=== PATIENT | male | born 1935 | race African-American/Black ===

== ENCOUNTER 2019-01-25 11:03 | Inpatient (IN) | payer MEDICARE, MEDICAID ==
[~2019-01-25] VITALS: Ht 167.6 cm; Wt 45.8 kg
--- NOTE | 2019-01-25 11:05 | NUR ---
ED Nurse Note: Patient brought into ED by [facility] from [facility] due to 1 episode of coffee ground emesis this morning. patient is awake alert x1 confused, unable to follow directions at this time, breathing unlabored and even.
[2019-01-25] MEDS ORDERED: NAMENDA5 MG ORAL (11:06)
[2019-01-25] MEDS ORDERED: FLOMAX0.4 MG ORAL (11:06)
[2019-01-25] MEDS ORDERED: LOSARTAN POTASS50 MG ORAL (11:06)
[2019-01-25] MEDS ORDERED: AMLODIPINE BESY10 MG ORAL (11:06)
[2019-01-25] MEDS ORDERED: METOPROLOL TART50 MG ORAL (11:06)
[2019-01-25] MEDS ORDERED: Pantoprazole Inj IV ONE (11:15)
--- NOTE | 2019-01-25 11:16 | Emergency Room Report ---
History of Present Illness General Chief Complaint: Gastrointestinal Bleed Source: EMS Present Illness HPI 83-year-old male history of dementia, BPH, hypertension, presents with coffee- ground emesis x1 day, unknown aggravating alleviating factors severity is moderate, constant, patient is currently not on any anticoagulation, patient cannot give a history secondary to dementia. Previous H/H, 11. in November 10 2018 Allergies: Coded Allergies: TETANUS TOXOID, ADSORBED (Verified Allergy, Unknown, 01/25/19) Patient History Limited by: medical condition - Dementia Past Medical History: see triage record Reviewed Nursing Documentation: PMH: Agreed; PSxH: Agreed Nursing Documentation-PMH Past Medical History: No History, Except For Hx COPD: Yes Hx Diabetes: Yes Hx Cancer: Yes - NEOPLASM OF PROSTATE Hx Dialysis: No - CKD History Of Psychiatric Problem: Yes - DEMENTIA Review of Systems All Other Systems: limited - Dementia Physical Exam Vital Signs Date Time Temp Pulse Resp B/P (MAP) Pulse Ox O2 Delivery O2 Flow Rate FiO2 01/25/19 10:59 98.4 75 16 177/76 (109) 90 Room Air Sp02 EP Interpretation: reviewed, normal General Appearance: no apparent distress, alert, cachetic Head: normocephalic, atraumatic Eyes: bilateral eye PERRL, bilateral eye EOMI ENT: uvula midline, moist mucus membranes Neck: supple, thyroid normal, supple/symm/no masses Respiratory: lungs clear, no respiratory distress, no retraction, no accessory muscle use Cardiovascular #1: normal peripheral pulses, regular rate, rhythm, no edema, no gallop, no murmur Gastrointestinal: non tender, soft, no guarding, no rebound Rectal: heme positive stool Musculoskeletal: normal inspection Neurologic: alert, responsive Psychiatric: mood/affect normal Skin: no rash, warm/dry Medical Decision Making Diagnostic Impression: Primary Impression: Gastrointestinal hemorrhage Qualified Codes: K27.4 - Chronic or unspecified peptic ulcer, site unspecified , with hemorrhage Additional Impressions: Dehydration UTI (urinary tract infection) Qualified Codes: N30.00 - Acute cystitis without hematuria ER Course 83-year-old male presents with coffee-ground emesis prior to arrival, patient was emergently evaluated by me, on the differential includes gastritis, acute GI bleed, peptic ulcer disease Lab work sent preop labs sent, Patient found to have dehydration will resuscitate patient Patient also found to have UTI will start ceftriaxone Will admit patient to [facility] Tests Test 01/25/19 11:00 01/25/19 13:17 01/25/19 13:19 White Blood Count 7.5 K/UL (4.8-10.8) Red Blood Count 3.76 M/UL (4.70-6.10) L Hemoglobin 11.7 G/DL (14.2-18.0) L Hematocrit 36.4 % (42.0-52.0) L Mean Corpuscular Volume 97 FL (80-99) Mean Corpuscular Hemoglobin 31.1 PG (27.0-31.0) H Mean Corpuscular Hemoglobin Concent 32.1 G/DL (32.0-36.0) Red Cell Distribution Width 12.7 % (11.6-14.8) Platelet Count 172 K/UL (150-450) Mean Platelet Volume 4.8 FL (6.5-10.1) L Neutrophils (%) (Auto) 75.6 % (45.0-75.0) H Lymphocytes (%) (Auto) 15.8 % (20.0-45.0) L Monocytes (%) (Auto) 7.5 % (1.0-10.0) Eosinophils (%) (Auto) 0.5 % (0.0-3.0) Basophils (%) (Auto) 0.7 % (0.0-2.0) Sodium Level 147 MMOL/L (136-145) H Potassium Level 4.7 MMOL/L (3.5-5.1) Chloride Level 110 MMOL/L (98-107) H Carbon Dioxide Level 32 MMOL/L (21-32) Anion Gap 5 mmol/L (5-15) Blood Urea Nitrogen 50 mg/dL (7-18) H Creatinine 1.3 MG/DL (0.55-1.30) Estimate Glomerular Filtration Rate mL/min (>60) Glucose Level 167 MG/DL (74-106) H Calcium Level 9.2 MG/DL (8.5-10.1) Total Bilirubin 0.3 MG/DL (0.2-1.0) Aspartate Amino Transferase (AST) 25 U/L (15-37) Alanine Aminotransferase (ALT) 18 U/L (12-78) Alkaline Phosphatase 59 U/L (46-116) Total Protein 6.8 G/DL (6.4-8.2) Albumin 2.8 G/DL (3.4-5.0) L Globulin 4.0 g/dL Albumin/Globulin Ratio 0.7 (1.0-2.7) L Lipase 143 U/L (73-393) Prothrombin Time Pending Prothrombin Time INR Pending PTT Pending Urine Color Pale yellow Urine Appearance Clear Urine pH 7 (4.5-8.0) Urine Specific [place] 1.005 (1.005-1.035) Urine Protein 1+ (NEGATIVE) H Urine Glucose (UA) Negative (NEGATIVE) Urine Ketones Negative (NEGATIVE) Urine Blood 5+ (NEGATIVE) H Urine Nitrite Negative (NEGATIVE) Urine Bilirubin Negative (NEGATIVE) Urine Urobilinogen Normal MG/DL (0.0-1.0) Urine Leukocyte Esterase 3+ (NEGATIVE) H Urine RBC 20-30 /HPF (0 - 0) H Urine WBC 10-15 /HPF (0 - 0) H Urine Squamous Epithelial Cells Occasional /LPF Urine Bacteria Occasional /HPF (NONE) EKG Diagnostic Results EKG Time: 11:18 EP Interpretation: NSR, rate 77, QTc 445, no acute ST elevations, artifact present Rhythm Strip Diag. Results Rhythm Strip Time: 11:15 EP Interpretation: yes Rate: 89 Rhythm: NSR, no PVC's, no ectopy Chest X-Ray Diagnostic Results Chest X-Ray Diagnostic Results : Chest X-Ray Ordered: Yes # of Views/Limited/Complete: 1 View Indication: Other - GI bleed EP Interpretation: Yes Interpretation: no consolidation, no effusion, no pneumothorax, no acute cardiopulmonary disease Impression: No acute disease Electronically Signed by: Moise Suarez MD CT/MRI/US Diagnostic Results CT/MRI/US Diagnostic Results : Impression Procedure: CT Abdomen Pelvis w/Contrast Clinical Indication: Pain, coffee-ground emesis x1 day Technique: No oral contrast utilized, per emergency room physician request IV administration nonionic contrast. Venous phase spiral acquisition obtained through the abdomen and pelvis. Multiplanar reconstructions were generated. Total dose length product 386.05 mGycm. CTDIvol(s) 9.27 mGy. Dose reduction achieved using automated exposure control Comparison: none Findings: The stomach is distended. The duodenum is nondistended. No definite mass at the gastric outlet demonstrated. Colonic anatomy is difficult to assess. The distal colon is filled with stool. The proximal colon is fluid-filled. There is evidence of prior ascending colectomy and ileocolic anastomosis. There is questionably an area of narrowing of the colon at the level of the hepatic flexure, although this is probably just a focally nondistended area. There is a broad-based ventral hernia which contains a knuckle of the transverse colon and loops of small bowel. No definite small bowel obstruction related to such. This probably does not obstruct the transverse colon either, as mildly prominent fluid-filled colon is seen distal to the entry point. No free or loculated intraperitoneal gas or fluid. No definite small bowel distention. There is a left inguinal hernia which contains fluid but no bowel. There is a soft tissue mass within the right inguinal canal which may reflect an incompletely descended testicle. Similar finding is seen in the left femoral canal. The liver demonstrates subcentimeter low-attenuation lesions which are too small to characterize. The gallbladder, bile ducts, pancreas, spleen, adrenals are unremarkable. The left kidney demonstrates an interpolar region cyst. Both kidneys demonstrate subcentimeter low-attenuation lesions which are too small to characterize. There is a 6 mm calcification in the left renal lower pole. No hydronephrosis or ureteral calculi demonstrated. No retroperitoneal or mesenteric mass or adenopathy. No pelvic mass or adenopathy. The prostate is enlarged, measuring 5 cm transverse dimension. The bladder is somewhat thick walled although incompletely distended. The right lung bases demonstrates a 2.8 cm masslike opacity in the posterior medial right lower lobe. There are areas of linear scarring surrounding this. In the right middle lobe, there is a spiculated 9 mm masslike opacity. No effusions. The bones demonstrate degenerative spondylosis changes. There is anterior offset of L4 on L5. There is a compression fracture deformity of the L1 vertebral body, age of which is indeterminate. Impression: Broad-based ventral hernia, containing a knuckle of transverse colon and a few loops of small bowel. No definite small bowel obstruction related to such Mildly distended fluid-filled ascending colon. Suspect functional in nature due to prior surgery. There is some narrowing of the proximal transverse colon which may be an area of peristalsis bladder and obstructing mass is not completely excludable. Doubt significant narrowing of the colon by the hernia, although this is not completely excludable. Stool-filled distal colon Left inguinal hernia contains fluid but no bowel. Bilateral soft tissue masses within the inguinal canals may reflect incompletely descended testicles 2.8 cm right lower lobe masslike opacity. Possibly an area of scarring or focal consolidation, but the possibility of a mass lesion should also be considered. Similar 0.9 cm area within the right middle lobe. There is also basilar parenchymal scarring L1 compression fracture, age-indeterminate Other findings as noted, including subcentimeter low-attenuation liver lesions, left renal cysts, subcentimeter low-attenuation left renal lesions, 6 mm lower pole left renal calcification, prostatomegaly The CT scanner at [facility] is accredited by the [employer] and the scans are performed using protocols designed to limit radiation exposure to as low as reasonably achievable to attain images of sufficient resolution adequate for diagnostic evaluation. Dictated By: Gilberto Willett MD Electronically Signed By: Gilberto Willett MD Signed Date/Time 01/25/19 0729 CC: Moise Suarez MD Last Vital Signs Date Time Temp Pulse Resp B/P (MAP) Pulse Ox O2 Delivery O2 Flow Rate FiO2 01/25/19 10:59 98.4 75 16 177/76 (109) 90 Room Air Disposition: ADMITTED INPATIENT Condition: Stable Moise Suarez MD Jan 25, 2019 11:16
[2019-01-25 11:33] LABS: BASOPHILS % (AUTO) 0.7 % (0.0-2.0); EOSINOPHILS % (AUTO) 0.5 % (0.0-3.0); HEMATOCRIT 36.4 % (42.0-52.0); HEMOGLOBIN 11.7 G/DL (14.2-18.0); LYMPHOCYTES % (AUTO) 15.8 % (20.0-45.0); MEAN CORPUSCULAR VOLUME 97 FL (80-99); MONOCYTES % (AUTO) 7.5 % (1.0-10.0); NEUTROPHILS % (AUTO) 75.6 % (45.0-75.0); PLATELET COUNT 172 K/UL (150-450); RED BLOOD COUNT 3.76 M/UL (4.70-6.10); RED CELL DISTRIBUTION WIDTH 12.7 % (11.6-14.8); WHITE BLOOD COUNT 7.5 K/UL (4.8-10.8)
[2019-01-25 11:40] VITALS: BP 188/65
--- NOTE | 2019-01-25 11:49 | NUR ---
ED Nurse Note: condom cath applied per Dr. Suarez's order
--- NOTE | 2019-01-25 11:49 | NUR ---
ED Nurse Note: condom cath applied.
[2019-01-25 11:51] LABS: ANION GAP 5 mmol/L (5-15); BLOOD UREA NITROGEN 50 mg/dL (7-18); CALCIUM 9.2 MG/DL (8.5-10.1); CARBON DIOXIDE 32 MMOL/L (21-32); CHLORIDE 110 MMOL/L (98-107); CREATININE 1.3 MG/DL (0.55-1.30); POTASSIUM 4.7 MMOL/L (3.5-5.1); SODIUM 147 MMOL/L (136-145)
[2019-01-25 11:52] LABS: ALANINE AMINOTRANSFERASE 18 U/L (12-78); ALBUMIN 2.8 G/DL (3.4-5.0); ALBUMIN/GLOBULIN RATIO 0.7 (1.0-2.7); ALKALINE PHOSPHATASE 59 U/L (46-116); ASPARTATE AMINO TRANSFERASE 25 U/L (15-37); BILIRUBIN,TOTAL 0.3 MG/DL (0.2-1.0)
[2019-01-25] MEDS ORDERED: Isovue-300 100ml vial INJ PRN (12:00)
--- NOTE | 2019-01-25 13:20 | Diagnostic Imaging Report ---
Clinical Indication: Pain, coffee-ground emesis x1 day Technique: No oral contrast utilized, per emergency room physician request IV administration nonionic contrast. Venous phase spiral acquisition obtained through the abdomen and pelvis. Multiplanar reconstructions were generated. Total dose length product 386.05 mGycm. CTDIvol(s) 9.27 mGy. Dose reduction achieved using automated exposure control Comparison: none Findings: The stomach is distended. The duodenum is nondistended. No definite mass at the gastric outlet demonstrated. Colonic anatomy is difficult to assess. The distal colon is filled with stool. The proximal colon is fluid-filled. There is evidence of prior ascending colectomy and ileocolic anastomosis. There is questionably an area of narrowing of the colon at the level of the hepatic flexure, although this is probably just a focally nondistended area. There is a broad-based ventral hernia which contains a knuckle of the transverse colon and loops of small bowel. No definite small bowel obstruction related to such. This probably does not obstruct the transverse colon either, as mildly prominent fluid-filled colon is seen distal to the entry point. No free or loculated intraperitoneal gas or fluid. No definite small bowel distention. There is a left inguinal hernia which contains fluid but no bowel. There is a soft tissue mass within the right inguinal canal which may reflect an incompletely descended testicle. Similar finding is seen in the left femoral canal. The liver demonstrates subcentimeter low-attenuation lesions which are too small to characterize. The gallbladder, bile ducts, pancreas, spleen, adrenals are unremarkable. The left kidney demonstrates an interpolar region cyst. Both kidneys demonstrate subcentimeter low-attenuation lesions which are too small to characterize. There is a 6 mm calcification in the left renal lower pole. No hydronephrosis or ureteral calculi demonstrated. No retroperitoneal or mesenteric mass or adenopathy. No pelvic mass or adenopathy. The prostate is enlarged, measuring 5 cm transverse dimension. The bladder is somewhat thick walled although incompletely distended. The right lung bases demonstrates a 2.8 cm masslike opacity in the posterior medial right lower lobe. There are areas of linear scarring surrounding this. In the right middle lobe, there is a spiculated 9 mm masslike opacity. No effusions. The bones demonstrate degenerative spondylosis changes. There is anterior offset of L4 on L5. There is a compression fracture deformity of the L1 vertebral body, age of which is indeterminate. Impression: Broad-based ventral hernia, containing a knuckle of transverse colon and a few loops of small bowel. No definite small bowel obstruction related to such Mildly distended fluid-filled ascending colon. Suspect functional in nature due to prior surgery. There is some narrowing of the proximal transverse colon which may be an area of peristalsis bladder and obstructing mass is not completely excludable. Doubt significant narrowing of the colon by the hernia, although this is not completely excludable. Stool-filled distal colon Left inguinal hernia contains fluid but no bowel. Bilateral soft tissue masses within the inguinal canals may reflect incompletely descended testicles 2.8 cm right lower lobe masslike opacity. Possibly an area of scarring or focal consolidation, but the possibility of a mass lesion should also be considered. Similar 0.9 cm area within the right middle lobe. There is also basilar parenchymal scarring L1 compression fracture, age-indeterminate Other findings as noted, including subcentimeter low-attenuation liver lesions, left renal cysts, subcentimeter low-attenuation left renal lesions, 6 mm lower pole left renal calcification, prostatomegaly The CT scanner at [facility] is accredited by the [employer] and the scans are performed using protocols designed to limit radiation exposure to as low as reasonably achievable to attain images of sufficient resolution adequate for diagnostic evaluation.
[2019-01-25 13:28] LABS: APPEARANCE,URINE CLEAR; BILIRUBIN, URINE NEGATIVE (NEGATIVE); COLOR,URINE PALE YELLOW; GLUCOSE, URINE (UA) NEGATIVE (NEGATIVE); KETONES,URINE NEGATIVE (NEGATIVE); LEUKOCYTE ESTERASE ,URINE 3+ (NEGATIVE); NITRITE,URINE NEGATIVE (NEGATIVE); PH,URINE 7 (4.5-8.0); PROTEIN,URINE 1+ (NEGATIVE); UROBILINOGEN,URINE NORMAL MG/DL (0.0-1.0)
[2019-01-25] MEDS ORDERED: cefTRIAXone 1 GM in NS 55 ML IVPB ONE (13:45)
--- NOTE | 2019-01-25 14:20 | NUR ---
ED Nurse Note: report given to Min RN. endorsed all plan of care to Min RN.
--- NOTE | 2019-01-25 14:25 | NUR ---
ED Nurse Note: patient transferred to 2E with SUPERVIS[employer] POST WAVE on ACLS protocol. patient has no belongings. endorsed to RN Min.
--- NOTE | 2019-01-25 14:30 | NUR ---
NURSE NOTES: Report received from Rosalia JOHNSON from ED. Pt's transferred from ED vis [facility] with RN and imaging technician. No c/o pain. Awake and disoriented but able to follow the simple comment. IV site in right forearm 20G SL intact and asymptomatic. Bed in lowest position and locked. Call light within easy reach. monitor car operator applied. Sinus rhythm noted on monitor. Pt came with no belonging. Dr. Salinas called for admission orders. Will continue to plan of care.
[2019-01-25 14:40] VITALS: BP 155/83
--- NOTE | 2019-01-25 15:29 | Diagnostic Imaging Report ---
Indication: Shortness of breath Technique: One view of the chest Comparison: none Findings: The lungs and pleural spaces are clear. The heart size is normal. The aorta is tortuous and calcified. Gastric distention, also described on subsequent CT scan, is noted. Impression: No acute cardiopulmonary process
--- NOTE | 2019-01-25 17:45 | Consultation ---
DATE OF CONSULTATION: 01/25/2019 INFECTIOUS DISEASE CONSULTATION CONSULTING PHYSICIAN: Tremayne Bhatti M.D. PRIMARY ATTENDING PHYSICIAN: Rajesh Salinas M.D. REASON FOR CONSULT: UTI. HISTORY OF PRESENT ILLNESS: This is an 83-year-old male admitted from a nursing facility for vomiting brownish material with impression of GI bleeding. He has also abnormal urine including hematuria and pyuria. He is not a source of history. PAST MEDICAL HISTORY: Significant for COPD, diabetes mellitus, prostatic cancer, dementia, and chronic kidney disease stage 3. MEDICATION: Got the dose of ceftriaxone in the ER, sodium chloride, Protonix, and Zofran. ALLERGY: Allergic to tetanus toxoid. SOCIAL HISTORY: Single. halfway resident. No other history obtainable. REVIEW OF SYSTEMS: Unobtainable. PHYSICAL EXAMINATION: VITAL SIGNS: Temperature 97.7, pulse 68, and blood pressure 155/83. GENERAL APPEARANCE: No acute distress. Seems to be awake and alert. Not communicative. HEAD AND NECK: [place] conjunctiva. HEART: Normal rate. LUNGS: Clear. ABDOMEN: Soft. Has ventral hernia. EXTREMITIES: Has no edema. LABORATORY AND DIAGNOSTIC DATA: WBC 7.5, hemoglobin 11.7, hematocrit 36.4, and platelets is 172,000. Sodium 147, potassium 4.7, chloride 110, BUN 15, creatinine 1.3, and glucose is 167. UA showed rbc of 20 to 30 and wbc of 10 to 15. The patient had a CT scan of the abdomen and pelvis. It showed lung bases had a 2.8 cm masslike opacity, has compression fracture of L1, and stool free distal colon with inguinal hernia and ventral hernia. Chest x-ray showed no acute cardiopulmonary disease. IMPRESSION: Pyuria and hematuria. likely UTI. The patient cannot provide any history of coffee-ground vomiting. Has diabetes mellitus, chronic kidney disease, dementia, prostatic cancer, ventral hernia, and L1 compression fracture. RECOMMENDATIONS: We will continue with ceftriaxone. We will follow up the cultures. At the end of my exam, I thank Dr. Salinas for involving me in the care of this patient. Tremayne Bhatti M.D. DR: RONY Baron: 01/25/2019 15:44 JOB#: [id number] CC: SUZE
--- NOTE | 2019-01-25 18:00 | NUR ---
NURSE NOTES: A tech from came for venous duplex on BLE. Unable to perform the Venous duplex due to contractures on BLE. Dr. Salinas notified and awaiting for reply.
--- NOTE | 2019-01-25 18:43 | NUR ---
NURSE NOTES: Stool Guaiac test was positive at ED
--- NOTE | 2019-01-25 18:55 | NUR ---
NURSE NOTES: Sang Benz paged for iv antibiotics for UTI. Awaiting for reply
--- NOTE | 2019-01-25 19:25 | NUR ---
HAND-OFF: Report given to Michele JOHNSON. Pt remains stable.
--- NOTE | 2019-01-25 19:30 | NUR ---
NURSE NOTES: Received report from ELIZABETH Leung. Pt is awake and resting in bed. In no acute distress. IV line intact and patent. Pt on hospital monitor. Bed in lowest position, call light within reach. Will continue plan of care.
[2019-01-25 20:00] VITALS: BP 111/58
--- NOTE | 2019-01-25 22:06 | General Progress Note ---
Assessment/Plan Assessment/Plan: Dictated. Thank you Hemant Puentes MD Subjective Allergies: Coded Allergies: TETANUS TOXOID, ADSORBED (Verified Allergy, Unknown, 01/25/19) Objective Last 24 Hour Vital Signs Date Time Temp Pulse Resp B/P (MAP) Pulse Ox O2 Delivery O2 Flow Rate FiO2 01/25/19 15:36 73 01/25/19 15:07 Room Air 01/25/19 15:00 76 01/25/19 14:40 97.7 68 18 155/83 (107) 93 01/25/19 14:25 98.4 76 19 188/65 96 Room Air 01/25/19 11:43 76 19 Room Air 01/25/19 11:40 98.4 76 19 188/65 96 Room Air 01/25/19 10:59 98.4 75 16 177/76 (109) 90 Room Air Laboratory Tests 01/25/19 11:00: White Blood Count 7.5, Red Blood Count 3.76L, Hemoglobin 11.7L, Hematocrit 36.4L , Mean Corpuscular Volume 97, Mean Corpuscular Hemoglobin 31.1H, Mean Corpuscular Hemoglobin Concent 32.1, Red Cell Distribution Width 12.7, Platelet Count 172, Mean Platelet Volume 4.8L, Neutrophils (%) (Auto) 75.6H, Lymphocytes (%) (Auto) 15.8L, Monocytes (%) (Auto) 7.5, Eosinophils (%) (Auto) 0.5, Basophils (%) (Auto) 0.7, Sodium Level 147H, Potassium Level 4.7, Chloride Level 110H, Carbon Dioxide Level 32, Anion Gap 5, Blood Urea Nitrogen 50H, Creatinine 1.3, Estimat Glomerular Filtration Rate , Glucose Level 167H, Calcium Level 9.2, Total Bilirubin 0.3, Aspartate Amino Transf (AST/SGOT) 25, Alanine Aminotransferase (ALT/SGPT) 18, Alkaline Phosphatase 59, Total Protein 6.8, Albumin 2.8L, Globulin 4.0, Albumin/Globulin Ratio 0.7L, Lipase 143 01/25/19 13:17: Prothrombin Time 11.0, Prothromb Time International Ratio 1.0, Activated Partial Thromboplast Time 26 01/25/19 13:19: Urine Color Pale yellow, Urine Appearance Clear, Urine pH 7, Urine Specific [place] 1.005, Urine Protein 1+H, Urine Glucose (UA) Negative, Urine Ketones Negative, Urine Blood 5+H, Urine Nitrite Negative, Urine Bilirubin Negative, Urine Urobilinogen Normal, Urine Leukocyte Esterase 3+H, Urine RBC 20-30H, Urine WBC 10-15H, Urine Squamous Epithelial Cells Occasional, Urine Bacteria Occasional Height (Feet): 5 Height (Inches): 7.00 Weight (Pounds): 100 Hemant Puentes MD Jan 25, 2019 22:06
[2019-01-25] MEDS ORDERED: Pantoprazole Inj IVP SCH (23:45)
[2019-01-26] VITALS (15 sets, daily range): BP systolic 121–195; BP diastolic 61–90
--- NOTE | 2019-01-26 00:45 | Consultation ---
DATE OF CONSULTATION: 01/25/2019 GASTROENTEROLOGY CONSULTATION CONSULTING PHYSICIAN: Hemant Puentes M.D. CHIEF COMPLAINT: I was asked to see this patient by Dr. Rajesh Salinas for evaluation of gastrointestinal bleeding. HISTORY OF PRESENT ILLNESS: The patient is a debilitated 83-year-old man with a history of dementia from a detention who was brought in for dark emesis. The patient himself was unable to provide any history and most of the information is only available from the chart. The patient did have heme-positive stools in the emergency room, which verified the bleeding, and has been admitted. He has also been treated for urinary tract infection. I have had an opportunity to discuss the case with the patient's grandson who stated that the patient has had a history of peptic ulcer disease in the past, but he is unaware of the details. The patient is a unable to give much history including any pain or burning symptoms. PAST MEDICAL HISTORY: History of COPD, diabetes, prostate cancer, dementia, chronic kidney disease. MEDICATIONS: See the chart list for details. ALLERGIES: Tetanus toxoid. FAMILY HISTORY: Noncontributory. SOCIAL HISTORY: The patient is single. He is a detention resident. His grandson looks after his affairs. REVIEW OF SYSTEMS: Otherwise unobtainable. PHYSICAL EXAMINATION: GENERAL: Debilitated, man, seen in his room. HEENT: Normocephalic, atraumatic. Dentition is poor. NECK: Supple. CHEST: Clear to auscultation. CARDIOVASCULAR: Revealed a regular rate. ABDOMEN: Soft with some old surgical scars of unclear nature. EXTREMITIES: Revealed some contractures. LABORATORY DATA: Noted. ASSESSMENT: This patient presents with dark emesis, which is likely gastrointestinal bleeding since the patient also has heme-positive stools. The patient has had a history of peptic ulcer disease and therefore he should undergo another endoscopy to evaluate the upper GI tract. This can be done in the morning. In the meantime, the patient is kept NPO and be given a proton pump inhibitor and IV fluids. CBC should be checked in the morning. The indications, risks, alternatives, and possible complications of the endoscopy were explained to the patient's grandson who agreed to proceed. The grandson was advised that either I will be doing the endoscopy or I will ask my colleague, Dr. Ernst to perform it. RECOMMENDATIONS: 1. Keep the patient NPO. 2. IV fluids. 3. Proton pump inhibitor. 4. Serial CBC. 5. Endoscopy tomorrow. Thank you for asking me to participate in the care of this patient. Hemant Puentes M.D. DR: YOANNA JOB#: [id number] CC:
--- NOTE | 2019-01-26 06:35 | NUR ---
NURSE NOTES: Pt's blood glucose was at 65 mg/dl, rechecked with same glucometer and result was 61 mg/dl. Administered D50% per protocol. Rechecked glucose after 15 mins, result was 124 mg/dl. Notified Dr. Salinas, was ordered to notify Dr. Vazquez.
--- NOTE | 2019-01-26 06:53 | Anethesia Preoperative Eval ---
Anesthesia Pre-op PMH/ROS General Date of Evaluation: Jan 26, 2019 Anesthesiologist: Luis ASA Score: ASA 3 Mallampati Score Class I : Soft palate, uvula, fauces, pillars visible Class II: Soft palate, uvula, fauces visible Class III: Soft palate, base of uvula visible Class IV: Only hard plate visible Mallampati Classification: Class III Surgeon: charli Diagnosis: ?GI bleed Surgical Procedure: EGD Anesthesia History: none Family History: no anesthesia problems Allergies: Coded Allergies: TETANUS TOXOID, ADSORBED (Verified Allergy, Unknown, 01/25/19) Medications: see eMAR Patient NPO?: Yes NPO Date: Jan 25, 2019 NPO Time: 22:00 Past Medical History Cardiovascular: Reports: HTN, CAD; Denies: NM, valve dz, arrhythmia, other Pulmonary: Denies: asthma, COPD, [place], other Gastrointestinal/Genitourinary: Reports: other - uc, h/o Gi bleed, dysphagia; Denies: GERD, CRI, ESRD Neurologic/Psychiatric: Reports: dementia; Denies: CVA, depression/anxiety, TIA, other Endocrine: Reports: DM; Denies: hypothyroidism, steroids, other HEENT: Denies: cataract (L), cataract (R), glaucoma, [place] (L), [place] (R), other Hematology/Immune: Denies: anemia, DVT, bleeding disorder, other Musculoskeletal/Integumentary: Reports: other - contractures; Denies: OA, RA, DJD, DDD, edema PSxH Narrative: unable to assess Anesthesia Pre-op Phys. Exam Physician Exam Last Vital Signs Date Time Temp Pulse Resp B/P (MAP) Pulse Ox O2 Delivery O2 Flow Rate FiO2 01/26/19 04:00 97.9 86 18 131/70 (90) 96 01/25/19 21:00 Room Air Constitutional: NAD Cardiovascular: RRR Respiratory: CTA Airway Exam Mallampati Score: Class III MO: limited ROM: limited Teeth: missing Anesthesia Pre-op A/P Labs Hematology Test 01/25/19 11:00 01/26/19 06:26 White Blood Count 7.5 K/UL (4.8-10.8) Pending Red Blood Count 3.76 M/UL (4.70-6.10) L Pending Hemoglobin 11.7 G/DL (14.2-18.0) L Pending Hematocrit 36.4 % (42.0-52.0) L Pending Mean Corpuscular Volume 97 FL (80-99) Pending Mean Corpuscular Hemoglobin 31.1 PG (27.0-31.0) H Pending Mean Corpuscular Hemoglobin Concent 32.1 G/DL (32.0-36.0) Pending Red Cell Distribution Width 12.7 % (11.6-14.8) Pending Platelet Count 172 K/UL (150-450) Pending Mean Platelet Volume 4.8 FL (6.5-10.1) L Pending Neutrophils (%) (Auto) 75.6 % (45.0-75.0) H Pending Lymphocytes (%) (Auto) 15.8 % (20.0-45.0) L Pending Monocytes (%) (Auto) 7.5 % (1.0-10.0) Pending Eosinophils (%) (Auto) 0.5 % (0.0-3.0) Pending Basophils (%) (Auto) 0.7 % (0.0-2.0) Pending Coagulation Test 01/25/19 13:17 Prothrombin Time 11.0 SEC (9.30-11.50) Prothromb Time International Ratio 1.0 (0.9-1.1) Activated Partial Thromboplast Time 26 SEC (23-33) Chemistry Test 01/25/19 11:00 01/26/19 06:26 Sodium Level 147 MMOL/L (136-145) H Pending Potassium Level 4.7 MMOL/L (3.5-5.1) Pending Chloride Level 110 MMOL/L (98-107) H Pending Carbon Dioxide Level 32 MMOL/L (21-32) Pending Anion Gap 5 mmol/L (5-15) Blood Urea Nitrogen 50 mg/dL (7-18) H Pending Creatinine 1.3 MG/DL (0.55-1.30) Pending Estimat Glomerular Filtration Rate mL/min (>60) Pending Glucose Level 167 MG/DL (74-106) H Pending Calcium Level 9.2 MG/DL (8.5-10.1) Pending Total Bilirubin 0.3 MG/DL (0.2-1.0) Pending Aspartate Amino Transf (AST/SGOT) 25 U/L (15-37) Pending Alanine Aminotransferase (ALT/SGPT) 18 U/L (12-78) Pending Alkaline Phosphatase 59 U/L (46-116) Pending Total Protein 6.8 G/DL (6.4-8.2) Pending Albumin 2.8 G/DL (3.4-5.0) L Pending Globulin 4.0 g/dL Pending Albumin/Globulin Ratio 0.7 (1.0-2.7) L Lipase 143 U/L (73-393) Studies Pre-op Studies: EKG - sr Risk Assessment & Plan Assessment: ASA III Plan: MAC Status Change Before Surgery: No Pre-Antibiotics Drug: N/A Alexandra Rincon MD Jan 26, 2019 06:52
--- NOTE | 2019-01-26 06:56 | NUR ---
NURSE NOTES: Notified Dr. Vazquez regarding pt episode of hypoglycemia. NNO orders at this time.
[2019-01-26 07:05] LABS: BASOPHILS % (AUTO) 0.4 % (0.0-2.0); EOSINOPHILS % (AUTO) 0.9 % (0.0-3.0); HEMATOCRIT 32.3 % (42.0-52.0); HEMOGLOBIN 10.1 G/DL (14.2-18.0); LYMPHOCYTES % (AUTO) 14.9 % (20.0-45.0); MEAN CORPUSCULAR VOLUME 98 FL (80-99); MONOCYTES % (AUTO) 7.8 % (1.0-10.0); PLATELET COUNT 135 K/UL (150-450); RED BLOOD COUNT 3.29 M/UL (4.70-6.10); RED CELL DISTRIBUTION WIDTH 12.8 % (11.6-14.8); WHITE BLOOD COUNT 4.7 K/UL (4.8-10.8)
--- NOTE | 2019-01-26 07:05 | NUR ---
NURSE NOTES: Pt left unit accompanied by transporter via gurney for GI procedure. Pt was in stable condition at the time of transfer.
[2019-01-26] MEDS ORDERED: Propofol 200mg/20ml IV ONE (07:08)
[2019-01-26] MEDS ORDERED: Lidocaine 1% MPF 10mg/ml 5ml ONE (07:08)
--- NOTE | 2019-01-26 07:09 | General Progress Note ---
Assessment/Plan Assessment/Plan: Assessment - UGIB - OB (+) - Mild anemia - mild thrombocytopenia, ? etiol - OBS Recommendations - follow labs - NPO - IVF - PPI - EGD today Subjective Allergies: Coded Allergies: TETANUS TOXOID, ADSORBED (Verified Allergy, Unknown, 01/25/19) Subjective Above noted confused no events overnight Objective Last 24 Hour Vital Signs Date Time Temp Pulse Resp B/P (MAP) Pulse Ox O2 Delivery O2 Flow Rate FiO2 01/26/19 04:00 97.9 86 18 131/70 (90) 96 01/26/19 04:00 86 01/26/19 00:00 63 01/26/19 00:00 98.1 63 18 156/63 (94) 95 01/25/19 23:05 65 01/25/19 21:00 Room Air 01/25/19 20:00 97.9 65 18 111/58 (75) 98 01/25/19 15:36 73 01/25/19 15:07 Room Air 01/25/19 15:00 76 01/25/19 14:40 97.7 68 18 155/83 (107) 93 01/25/19 14:25 98.4 76 19 188/65 96 Room Air 01/25/19 11:43 76 19 Room Air 01/25/19 11:40 98.4 76 19 188/65 96 Room Air 01/25/19 10:59 98.4 75 16 177/76 (109) 90 Room Air Intake and Output 01/25/19 01/26/19 19:00 07:00 Intake Total 175 ml 600 ml Output Total 200 ml Balance 175 ml 400 ml Intake IV Total 175 ml 600 ml Output Urine Total 200 ml # Voids 2 # Bowel Movements 2 Laboratory Tests 01/25/19 11:00: White Blood Count 7.5, Red Blood Count 3.76L, Hemoglobin 11.7L, Hematocrit 36.4L , Mean Corpuscular Volume 97, Mean Corpuscular Hemoglobin 31.1H, Mean Corpuscular Hemoglobin Concent 32.1, Red Cell Distribution Width 12.7, Platelet Count 172, Mean Platelet Volume 4.8L, Neutrophils (%) (Auto) 75.6H, Lymphocytes (%) (Auto) 15.8L, Monocytes (%) (Auto) 7.5, Eosinophils (%) (Auto) 0.5, Basophils (%) (Auto) 0.7, Sodium Level 147H, Potassium Level 4.7, Chloride Level 110H, Carbon Dioxide Level 32, Anion Gap 5, Blood Urea Nitrogen 50H, Creatinine 1.3, Estimat Glomerular Filtration Rate , Glucose Level 167H, Calcium Level 9.2, Total Bilirubin 0.3, Aspartate Amino Transf (AST/SGOT) 25, Alanine Aminotransferase (ALT/SGPT) 18, Alkaline Phosphatase 59, Total Protein 6.8, Albumin 2.8L, Globulin 4.0, Albumin/Globulin Ratio 0.7L, Lipase 143 01/25/19 13:17: Prothrombin Time 11.0, Prothromb Time International Ratio 1.0, Activated Partial Thromboplast Time 26 01/25/19 13:19: Urine Color Pale yellow, Urine Appearance Clear, Urine pH 7, Urine Specific [place] 1.005, Urine Protein 1+H, Urine Glucose (UA) Negative, Urine Ketones Negative, Urine Blood 5+H, Urine Nitrite Negative, Urine Bilirubin Negative, Urine Urobilinogen Normal, Urine Leukocyte Esterase 3+H, Urine RBC 20-30H, Urine WBC 10-15H, Urine Squamous Epithelial Cells Occasional, Urine Bacteria Occasional 01/26/19 06:26: White Blood Count [Pending], Red Blood Count [Pending], Hemoglobin [Pending], Hematocrit [Pending], Mean Corpuscular Volume [Pending], Mean Corpuscular Hemoglobin [Pending], Mean Corpuscular Hemoglobin Concent [Pending], Red Cell Distribution Width [Pending], Platelet Count [Pending], Mean Platelet Volume [ Pending], Neutrophils (%) (Auto) [Pending], Lymphocytes (%) (Auto) [Pending], Monocytes (%) (Auto) [Pending], Eosinophils (%) (Auto) [Pending], Basophils (%) (Auto) [Pending], Sodium Level [Pending], Potassium Level [Pending], Chloride Level [Pending], Carbon Dioxide Level [Pending], Blood Urea Nitrogen [Pending], Creatinine [Pending], Estimat Glomerular Filtration Rate [Pending], Glucose Level [Pending], Calcium Level [Pending], Total Bilirubin [Pending], Aspartate Amino Transf (AST/SGOT) [Pending], Alanine Aminotransferase (ALT/SGPT) [Pending] , Alkaline Phosphatase [Pending], Total Protein [Pending], Albumin [Pending], Globulin [Pending] Height (Feet): 5 Height (Inches): 6.00 Weight (Pounds): 101 Objective Thin AA man NCAT supple CTA RR abd soft no edema neuro OBS, confused Hemant Puentes MD Jan 26, 2019 07:09
--- NOTE | 2019-01-26 07:10 | Pre-Procedure Note/Attestation ---
Pre-Procedure Note/Attestation Complete Prior to Procedure Planned Procedure: not applicable Procedure Narrative: EGD Indications for Procedure Pre-Operative Diagnosis: GIB Attestation I attest that I discussed the nature of the procedure; its benefits; risks and complications; and alternatives (and the risks and benefits of such alternatives ), prior to the procedure, with the patient (or the patient's legal players club representative). I attest that, if there was a reasonable possibility of needing a blood transfusion, the patient (or the patient's legal players club representative) was given the [facility] standardized written summary, pursuant to the Emiliano Carl Blood Safety Act ([place] Health and Safety Code # 1645, as amended). I attest that I re-evaluated the patient just prior to the surgery and that there has been no change in the patient's H&P, except as documented below: Hemant Peuntes MD Jan 26, 2019 07:10
[2019-01-26] MEDS ORDERED: NS 500ML IVPB ONE (07:15)
--- NOTE | 2019-01-26 07:15 | NUR ---
NURSE NOTES: Dr. Vazquez called again and gave new orders to change IV fluids to D51/2NS at 75 cc/hr and to check blood glucose Q4HR with no coverage. Orders read back and carried out.
[2019-01-26 07:17] LABS: ALANINE AMINOTRANSFERASE 16 U/L (12-78); ALBUMIN 2.7 G/DL (3.4-5.0); ALBUMIN/GLOBULIN RATIO 0.7 (1.0-2.7); ALKALINE PHOSPHATASE 56 U/L (46-116); ANION GAP 9 mmol/L (5-15); ASPARTATE AMINO TRANSFERASE 19 U/L (15-37); BILIRUBIN,TOTAL 0.3 MG/DL (0.2-1.0); BLOOD UREA NITROGEN 33 mg/dL (7-18); CALCIUM 8.8 MG/DL (8.5-10.1); CARBON DIOXIDE 26 MMOL/L (21-32); CHLORIDE 111 MMOL/L (98-107); CREATININE 1.1 MG/DL (0.55-1.30); POTASSIUM 4.1 MMOL/L (3.5-5.1); SODIUM 146 MMOL/L (136-145)
--- NOTE | 2019-01-26 07:25 | NUR ---
NURSE NOTES: Rceived report from ELIZAEBTH Leung. Pt is awake and resting in bed. In no acute distress. IV line intact and patent. Pt on leguillon debeader. Bed in lowest position, call light within reach. Will continue plan of care.
--- NOTE | 2019-01-26 07:25 | NUR ---
HAND-OFF: Report given to ELIZABETH Leung.
--- NOTE | 2019-01-26 07:34 | Endoscopy Procedure Note ---
Endoscopy Procedure Note General Indication for Procedure: GIB Procedures Performed: EGD Operative Findings/Diagnosis: 2 cm HH, GERD, r/o barretts Specimen: yes Pt Tolerated Procedure Well: Yes Estimated Blood Loss: none Anesthesia Anesthesiologist: Dr Smith Anesthesia: MAC, moderate sedation Medications Medication Given: see anesthesia record Inserted Devices Implant(s) used?: No GI Core Measures 50 yrs or older w/o bx or poly: Not Applicable 10yrs. F/U recommended: Not Applicable Hemant Puentes MD Jan 26, 2019 07:34
--- NOTE | 2019-01-26 07:36 | Brief Operative Note ---
Immediate Post Operative Note Operative Note Chief Complaint: UGIB Pre-op Diagnosis: GIB Procedure: esophagogastroduodenoscopy bx Post-op Diagnosis: 2 cm HH, GERD, r/o barretts Surgeon: charli Anesthesiologist: Luis Anesthesia: MAC Specimen: yes Complications: none Condition: stable Fluids: recorded Estimated Blood Loss: none Drains: none Implant(s) used?: No Hemant Puentes MD Jan 26, 2019 07:36
--- NOTE | 2019-01-26 07:37 | Immediate Post-Op Evaluation ---
Immediate Post-Op Evalulation Immediate Post-Op Evalulation Procedure: EGD Date of Evaluation: Jan 26, 2019 Time of Evaluation: 07:39 IV Fluids: 150 Blood Products: 0 Estimated Blood Loss: 0 Urinary Output: 0 Blood Pressure Systolic: 133 Blood Pressure Diastolic: 72 Pulse Rate: 94 Respiratory Rate: 17 O2 Sat by Pulse Oximetry: 96 Temperature (Fahrenheit): 99.4 Pain Score (1-10): 0 Nausea: No Vomiting: No Complications 0 Patient Status: awake, reacts, patent, none Hydration Status: adequate Drug: N/a Alexandra Rincon MD Jan 26, 2019 07:37
--- NOTE | 2019-01-26 07:39 | 48 Hour Post Anesthesia Eval ---
Post Anesthesia Evaluation Procedure: EGD Date of Evaluation: Jan 26, 2019 Airway: patent Nausea: No Vomiting: No Hydration Status: adequate Cardiopulmonary Status: at baseline Mental Status/LOC: patient returned to baseline Post-Anesthesia Complications: 0 Follow-up care needed: ready to discharge Alexandra Rincon MD Jan 26, 2019 07:39
[2019-01-26] MEDS ORDERED: D5 1/2NS 1,000 ML IV SCH (08:00)
--- NOTE | 2019-01-26 08:07 | CDS Physician Query ---
Clarification is required for compliance, coding accuracy, and to reflect severity of illness for this patient Dear Dr. Hemant Puentes M.D. 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 BRUNAD
--- NOTE | 2019-01-26 11:26 | NUR ---
NURSE NOTES: Dr. Jeter paged for hypertention, there is no blood meds ordered. 195/ , P100 and Awaiting for reply
[2019-01-26] MEDS ORDERED: Metoprolol Tartrate 50mg tab ORAL SCH (11:45)
[2019-01-26] MEDS ORDERED: cefTRIAXone 1 GM in D5W 55 ML IVPB SCH (13:00)
--- NOTE | 2019-01-26 13:01 | Consultation ---
History of Present Illness General Chief Complaint: Gastrointestinal Bleed Present Illness Allergies: Coded Allergies: TETANUS TOXOID, ADSORBED (Verified Allergy, Unknown, 01/25/19) Medication History Scheduled Amlodipine Besylate* (Amlodipine Besylate*), 10 MG ORAL DAILY, (Reported) Losartan Potassium* (Losartan Potassium*), 100 MG ORAL DAILY, (Reported) Memantine Hcl* (Namenda*), 5 MG ORAL DAILY, (Reported) Metoprolol Tartrate* (Metoprolol Tartrate*), 50 MG ORAL EVERY 12 HOURS, ( Reported) Tamsulosin HCl (Flomax), 0.4 MG ORAL DAILY, (Reported) Patient History Healthcare decision maker N Resuscitation status Full Code Advanced Directive on File Physical Exam Last 24 Hour Vital Signs Date Time Temp Pulse Resp B/P (MAP) Pulse Ox O2 Delivery O2 Flow Rate FiO2 01/26/19 11:52 92 195/90 01/26/19 11:52 92 195/90 01/26/19 11:25 99.1 92 20 195/90 (125) 99 01/26/19 09:00 Room Air 01/26/19 08:00 99.4 92 20 129/90 (103) 94 01/26/19 08:00 100 01/26/19 07:55 99.1 87 15 158/88 99 Nasal Cannula 3 01/26/19 07:44 90 15 159/73 99 Nasal Cannula 3 01/26/19 07:39 94 18 121/85 99 Nasal Cannula 3 01/26/19 07:37 94 17 96 01/26/19 07:34 99.4 94 17 133/72 96 Nasal Cannula 3 01/26/19 04:00 97.9 86 18 131/70 (90) 96 01/26/19 04:00 86 01/26/19 00:00 63 01/26/19 00:00 98.1 63 18 156/63 (94) 95 01/25/19 23:05 65 01/25/19 21:00 Room Air 01/25/19 20:00 97.9 65 18 111/58 (75) 98 01/25/19 15:36 73 01/25/19 15:07 Room Air 01/25/19 15:00 76 01/25/19 14:40 97.7 68 18 155/83 (107) 93 01/25/19 14:25 98.4 76 19 188/65 96 Room Air Intake and Output 01/25/19 01/26/19 18:59 06:59 Intake Total 150 ml 575 ml Output Total 200 ml Balance 150 ml 375 ml Intake IV Total 150 ml 575 ml Output Urine Total 200 ml # Voids 2 # Bowel Movements 2 Laboratory Tests Test 01/25/19 13:17 01/25/19 13:19 01/26/19 06:26 Prothrombin Time 11.0 SEC (9.30-11.50) Prothromb Time International Ratio 1.0 (0.9-1.1) Activated Partial Thromboplast Time 26 SEC (23-33) Urine Color Pale yellow Urine Appearance Clear Urine pH 7 (4.5-8.0) Urine Specific [place] 1.005 (1.005-1.035) Urine Protein 1+ (NEGATIVE) H Urine Glucose (UA) Negative (NEGATIVE) Urine Ketones Negative (NEGATIVE) Urine Blood 5+ (NEGATIVE) H Urine Nitrite Negative (NEGATIVE) Urine Bilirubin Negative (NEGATIVE) Urine Urobilinogen Normal MG/DL (0.0-1.0) Urine Leukocyte Esterase 3+ (NEGATIVE) H Urine RBC 20-30 /HPF (0 - 0) H Urine WBC 10-15 /HPF (0 - 0) H Urine Squamous Epithelial Cells Occasional /LPF Urine Bacteria Occasional /HPF (NONE) White Blood Count 4.7 K/UL (4.8-10.8) L Red Blood Count 3.29 M/UL (4.70-6.10) L Hemoglobin 10.1 G/DL (14.2-18.0) L Hematocrit 32.3 % (42.0-52.0) L Mean Corpuscular Volume 98 FL (80-99) Mean Corpuscular Hemoglobin 30.7 PG (27.0-31.0) Mean Corpuscular Hemoglobin Concent 31.3 G/DL (32.0-36.0) L Red Cell Distribution Width 12.8 % (11.6-14.8) Platelet Count 135 K/UL (150-450) L Mean Platelet Volume 5.1 FL (6.5-10.1) L Neutrophils (%) (Auto) 76.0 % (45.0-75.0) H Lymphocytes (%) (Auto) 14.9 % (20.0-45.0) L Monocytes (%) (Auto) 7.8 % (1.0-10.0) Eosinophils (%) (Auto) 0.9 % (0.0-3.0) Basophils (%) (Auto) 0.4 % (0.0-2.0) Sodium Level 146 MMOL/L (136-145) H Potassium Level 4.1 MMOL/L (3.5-5.1) Chloride Level 111 MMOL/L (98-107) H Carbon Dioxide Level 26 MMOL/L (21-32) Anion Gap 9 mmol/L (5-15) Blood Urea Nitrogen 33 mg/dL (7-18) H Creatinine 1.1 MG/DL (0.55-1.30) Estimat Glomerular Filtration Rate mL/min (>60) Glucose Level 176 MG/DL (74-106) H Calcium Level 8.8 MG/DL (8.5-10.1) Total Bilirubin 0.3 MG/DL (0.2-1.0) Aspartate Amino Transf (AST/SGOT) 19 U/L (15-37) Alanine Aminotransferase (ALT/SGPT) 16 U/L (12-78) Alkaline Phosphatase 56 U/L (46-116) Total Protein 6.5 G/DL (6.4-8.2) Albumin 2.7 G/DL (3.4-5.0) L Globulin 3.8 g/dL Albumin/Globulin Ratio 0.7 (1.0-2.7) L Microbiology Date/Time Source Procedure Growth Status 01/25/19 13:19 Urine,Clean Catch Urine Culture - Preliminary NO GROWTH Resulted 01/25/19 13:30 Rectum Received Height (Feet): 5 Height (Inches): 6.00 Weight (Pounds): 101 Medications Current Medications Medications (Trade) Dose Ordered Sig/Sameer Route PRN Reason Start Time Stop Time Status Last Admin Dose Admin Acetaminophen (Tylenol) 650 mg Q4H PRN ORAL Mild Pain/Temp > 100.0 01/25/19 16:15 02/24/19 16:14 Amlodipine Besylate (Norvasc) 10 mg DAILY ORAL 01/26/19 11:45 02/25/19 11:44 01/26/19 11:52 Ceftriaxone Sodium 1 gm/ Dextrose 55 ml @ 110 mls/hr Q24H IVPB 01/26/19 13:00 02/02/19 12:59 Dextrose (Dextrose 50%) 25 ml Q30M PRN IV Hypoglycemia 01/25/19 16:00 02/24/19 15:59 01/26/19 06:08 Dextrose (Dextrose 50%) 50 ml Q30M PRN IV Hypoglycemia 01/25/19 16:00 02/24/19 15:59 Hydralazine HCl (Apresoline) 10 mg Q4H PRN IV For High Blood Pressure 01/26/19 12:45 02/25/19 12:44 Iopamidol (Isovue-300 100ml) 100 ml NOW PRN INJ Radiology Procedure 01/25/19 12:00 Losartan Potassium (Cozaar) 100 mg DAILY ORAL 01/27/19 09:00 02/26/19 08:59 Metoprolol Tartrate (Lopressor) 50 mg EVERY 12 HOURS ORAL 01/26/19 11:45 02/25/19 11:44 01/26/19 11:52 Ondansetron HCl (Zofran) 4 mg Q6H PRN IVP Nausea & Vomiting 01/25/19 16:15 02/24/19 16:14 Pantoprazole (Protonix) 40 mg DAILY@2300 IVP 01/25/19 23:45 02/24/19 23:44 01/26/19 00:08 Assessment/Plan Assessment/Plan: Hematology Consultation REQ MD: Rajesh Jones RFC: Anemia eval and lung nodule DOS: 01/26/19 CHIEF COMPLAINT: HISTORY OF PRESENT ILLNESS: 83 yo male, debilitated 83-year-old man with a history of dementia from a long term who was brought in for dark emesis. The patient himself was unable to provide any history and most of the information is only available from the chart. The patient did have heme-positive stools in the emergency room, which verified the bleeding, and has been admitted. He has also been treated for urinary tract infection. I have had an opportunity to discuss the case with the patient's grandson who stated that the patient has had a history of peptic ulcer disease in the past, but he is unaware of the details. The patient is a unable to give much history, is s/p egd showing hh and barretts. PAST MEDICAL HISTORY: History of COPD, diabetes, prostate cancer, dementia, chronic kidney disease. MEDICATIONS: See the chart list for details. ALLERGIES: Tetanus toxoid. FAMILY HISTORY: Noncontributory. SOCIAL HISTORY: The patient is single. He is a long term resident. His grandson looks after his affairs. REVIEW OF SYSTEMS: Otherwise unobtainable. PHYSICAL EXAMINATION: GENERAL: Debilitated, man, seen in his room. HEENT: Normocephalic, atraumatic. Dentition is poor. NECK: Supple. CHEST: Clear to auscultation. CARDIOVASCULAR: Revealed a regular rate. ABDOMEN: Soft with some old surgical scars of unclear nature. EXTREMITIES: Revealed some contractures. LABORATORY DATA: Noted. Imaging: noted ASSESSMENT/RECS: # Multiple lung nodules --> 2.8 cm right lower lobe masslike opacity. Possibly an area of scarring or focal consolidation, but the possibility of a mass lesion should also be considered. Similar 0.9 cm area within the right middle lobe. There is also basilar parenchymal scarring (R/O MALIGNANCY) --> consider pulm eval as needed --> may need ct chest and potentially biopsy as per pulm --> given advanced age, first consider dw pulm team # Anemia due to underlying gi bleed --> on protonix as per gi --> have started on octreotide as per gi--> now off --> s/p egd and showed HH and barretts, potentially peptic ulcer # Anemia due to iron deficiency --> confirm iron status, send off w/u --> consider iv iron based on above --> abx treatment for h. pylori --> ppi for now # Dehydration --> started on iv fluids # Uti --> s/p abx The timing of this note does not necessarily reflect the time of the patient was seen. Greatly appreciate consultation. Bhupendra Fay MD Jan 26, 2019 13:01
--- NOTE | 2019-01-26 13:07 | Infectious Diseases Prog Note ---
Assessment/Plan Assessment/Plan IMPRESSION: Pyuria and hematuria. likely UTI. Coffee-ground vomiting. diabetes mellitus, chronic kidney disease, dementia, prostatic cancer, ventral hernia, L1 compression fracture. GERD Hiatal hernia RECOMMENDATIONS: We will continue with ceftriaxone. will follow up the cultures. Subjective ROS Limited/Unobtainable: Yes Constitutional: Denies: fever Gastrointestinal/Abdominal: Reports: other - had EGD today Allergies: Coded Allergies: TETANUS TOXOID, ADSORBED (Verified Allergy, Unknown, 01/25/19) Objective Vital Signs Last 24 Hour Vital Signs Date Time Temp Pulse Resp B/P (MAP) Pulse Ox O2 Delivery O2 Flow Rate FiO2 01/26/19 11:52 92 195/90 01/26/19 11:52 92 195/90 01/26/19 11:25 99.1 92 20 195/90 (125) 99 01/26/19 09:00 Room Air 01/26/19 08:00 99.4 92 20 129/90 (103) 94 01/26/19 08:00 100 01/26/19 07:55 99.1 87 15 158/88 99 Nasal Cannula 3 01/26/19 07:44 90 15 159/73 99 Nasal Cannula 3 01/26/19 07:39 94 18 121/85 99 Nasal Cannula 3 01/26/19 07:37 94 17 96 01/26/19 07:34 99.4 94 17 133/72 96 Nasal Cannula 3 01/26/19 04:00 97.9 86 18 131/70 (90) 96 01/26/19 04:00 86 01/26/19 00:00 63 01/26/19 00:00 98.1 63 18 156/63 (94) 95 01/25/19 23:05 65 01/25/19 21:00 Room Air 01/25/19 20:00 97.9 65 18 111/58 (75) 98 01/25/19 15:36 73 01/25/19 15:07 Room Air 01/25/19 15:00 76 01/25/19 14:40 97.7 68 18 155/83 (107) 93 01/25/19 14:25 98.4 76 19 188/65 96 Room Air Height (Feet): 5 Height (Inches): 6.00 Weight (Pounds): 101 General Appearance: no acute distress HEENT: mucous membranes moist Respiratory/Chest: lungs clear Cardiovascular: normal rate Abdomen: soft, non tender Extremities: no edema Neurologic/Psychiatric: other - sleeping Microbiology Date/Time Source Procedure Growth Status 01/25/19 13:19 Urine,Clean Catch Urine Culture - Preliminary NO GROWTH Resulted 01/25/19 13:30 Rectum Received Laboratory Tests Test 01/25/19 13:17 01/25/19 13:19 01/26/19 06:26 Prothrombin Time 11.0 SEC (9.30-11.50) Prothromb Time International Ratio 1.0 (0.9-1.1) Activated Partial Thromboplast Time 26 SEC (23-33) Urine Color Pale yellow Urine Appearance Clear Urine pH 7 (4.5-8.0) Urine Specific [place] 1.005 (1.005-1.035) Urine Protein 1+ (NEGATIVE) H Urine Glucose (UA) Negative (NEGATIVE) Urine Ketones Negative (NEGATIVE) Urine Blood 5+ (NEGATIVE) H Urine Nitrite Negative (NEGATIVE) Urine Bilirubin Negative (NEGATIVE) Urine Urobilinogen Normal MG/DL (0.0-1.0) Urine Leukocyte Esterase 3+ (NEGATIVE) H Urine RBC 20-30 /HPF (0 - 0) H Urine WBC 10-15 /HPF (0 - 0) H Urine Squamous Epithelial Cells Occasional /LPF Urine Bacteria Occasional /HPF (NONE) White Blood Count 4.7 K/UL (4.8-10.8) L Red Blood Count 3.29 M/UL (4.70-6.10) L Hemoglobin 10.1 G/DL (14.2-18.0) L Hematocrit 32.3 % (42.0-52.0) L Mean Corpuscular Volume 98 FL (80-99) Mean Corpuscular Hemoglobin 30.7 PG (27.0-31.0) Mean Corpuscular Hemoglobin Concent 31.3 G/DL (32.0-36.0) L Red Cell Distribution Width 12.8 % (11.6-14.8) Platelet Count 135 K/UL (150-450) L Mean Platelet Volume 5.1 FL (6.5-10.1) L Neutrophils (%) (Auto) 76.0 % (45.0-75.0) H Lymphocytes (%) (Auto) 14.9 % (20.0-45.0) L Monocytes (%) (Auto) 7.8 % (1.0-10.0) Eosinophils (%) (Auto) 0.9 % (0.0-3.0) Basophils (%) (Auto) 0.4 % (0.0-2.0) Sodium Level 146 MMOL/L (136-145) H Potassium Level 4.1 MMOL/L (3.5-5.1) Chloride Level 111 MMOL/L (98-107) H Carbon Dioxide Level 26 MMOL/L (21-32) Anion Gap 9 mmol/L (5-15) Blood Urea Nitrogen 33 mg/dL (7-18) H Creatinine 1.1 MG/DL (0.55-1.30) Estimat Glomerular Filtration Rate mL/min (>60) Glucose Level 176 MG/DL (74-106) H Calcium Level 8.8 MG/DL (8.5-10.1) Total Bilirubin 0.3 MG/DL (0.2-1.0) Aspartate Amino Transf (AST/SGOT) 19 U/L (15-37) Alanine Aminotransferase (ALT/SGPT) 16 U/L (12-78) Alkaline Phosphatase 56 U/L (46-116) Total Protein 6.5 G/DL (6.4-8.2) Albumin 2.7 G/DL (3.4-5.0) L Globulin 3.8 g/dL Albumin/Globulin Ratio 0.7 (1.0-2.7) L Current Medications Medications (Trade) Dose Ordered Sig/Sameer Route PRN Reason Start Time Stop Time Status Last Admin Dose Admin Acetaminophen (Tylenol) 650 mg Q4H PRN ORAL Mild Pain/Temp > 100.0 01/25/19 16:15 02/24/19 16:14 Amlodipine Besylate (Norvasc) 10 mg DAILY ORAL 01/26/19 11:45 02/25/19 11:44 01/26/19 11:52 Ceftriaxone Sodium 1 gm/ Dextrose 55 ml @ 110 mls/hr Q24H IVPB 01/26/19 13:00 02/02/19 12:59 Dextrose (Dextrose 50%) 25 ml Q30M PRN IV Hypoglycemia 01/25/19 16:00 02/24/19 15:59 01/26/19 06:08 Dextrose (Dextrose 50%) 50 ml Q30M PRN IV Hypoglycemia 01/25/19 16:00 02/24/19 15:59 Hydralazine HCl (Apresoline) 10 mg Q4H PRN IV For High Blood Pressure 01/26/19 12:45 02/25/19 12:44 Iopamidol (Isovue-300 100ml) 100 ml NOW PRN INJ Radiology Procedure 01/25/19 12:00 Losartan Potassium (Cozaar) 100 mg DAILY ORAL 01/27/19 09:00 02/26/19 08:59 Metoprolol Tartrate (Lopressor) 50 mg EVERY 12 HOURS ORAL 01/26/19 11:45 02/25/19 11:44 01/26/19 11:52 Ondansetron HCl (Zofran) 4 mg Q6H PRN IVP Nausea & Vomiting 01/25/19 16:15 02/24/19 16:14 Pantoprazole (Protonix) 40 mg DAILY@2300 IVP 01/25/19 23:45 02/24/19 23:44 01/26/19 00:08 Tremayne Bhatti MD Jan 26, 2019 13:07
--- NOTE | 2019-01-26 13:27 | NUR ---
RD ASSESSMENT & RECOMMENDATIONS SEE CARE ACTIVITY FOR COMPLETE ASSESSMENT DAILY ESTIMATED NEEDS: Needs based on Wound, underweight/ 46kg 30-35 kcals/kg 3010-2206 total kcals 1.25-1.5 g protein/kg 87-69 g total protein 25-30 mL/kg 0318-9025 total fluid mLs NUTRITION DIAGNOSIS: * Increased kcal/prot intake needs R/T underweight status and wound healing as evidenced by pt possibly 81% IBW w/ low BMI per guidelines, admitted w/ rt hip wound per photo, pending eval. * Swallowing difficulty R/T dysphagia as evidenced by pt on pureed moist texture diet [employer], currently on [facility] soft ground texture. * Altered nutrition related lab values R/T h/o DM as evidenced by elev BGs (176, 167) CURRENT DIET:CARDIAC, [facility] soft ground PO DIET RECOMMENDATIONS: CCHO MED, LOW NA/ texture per MAIL OFFICER ADDITIONAL RECOMMENDATIONS: * Calibrated bedscale wt for accurate CBW -> weekly wt monitoring given underweight status * MAIL OFFICER evaluation for appropriate texture * Rec hypoglycemics for BG control: elev BGS, h/o DM * Wound healing: add MVI x 1, Vit C 250mg QD : add [place] 1pkt BID Addendum: 01/26/19 at [address] * Add Glucerna 1 tetra elizabeth BID in b/w meals
[2019-01-26 13:45] LABS: FERRITIN 93 NG/ML (8-388)
--- NOTE | 2019-01-26 13:53 | NUR ---
NURSE NOTES:WOUND CARE NOTES:Pt presented on admission with resolving full thickness pressure injury sacrococcygeal area. Base of wound is pink ,dry with callused borders (L)2.5cm x (W)2cm. Surrounding pink epithelial that is dry. Pt became agitated and attempted to hit staff when affected area minimally palpated. Resolving pressure injury R trochanter. [place] epithelial in center base of wound(L)2cm x (W)3.3cm. Borders and perimeter of wound dark without erythema or induration.(L)5cm x (W)6.5cm. R heel with dark callused skin. No erythema noted. L heel dry and blanchable. Recommendations: Apply Moisture Barrier Paste to Sacrum. Cover with Optifoam drsg. Change every 3 days and prn. Apply Moisture Barrier Paste to R trochanter. Cover with Optifoam drsg. Change every 3 days and prn. Apply [place] Skin Barrier to both heels. Cover each heel with Optifoam drsg. Change every 7days and PRN. Reposition at least every 2hours or as tolerated. Off-load heels with pillow.
[2019-01-26 14:14] LABS: % IRON SATURATION 27 % (15-50); IRON 60 ug/dL (50-175); TOTAL IRON BINDING CAPACITY 224 ug/dL (250-450)
[2019-01-26] MEDS ORDERED: HydrALAZINE 25mg tab ORAL PRN ×2 (15:45→21:00)
[2019-01-26] MEDS ORDERED: Losartan 50mg tab ORAL SCH (16:00)
--- NOTE | 2019-01-26 16:00 | Consultation ---
DATE OF CONSULTATION: 01/26/2019 ENDOCRINOLOGY CONSULTATION CONSULTING PHYSICIAN: Salvador Vazquez M.D. REFERRING PHYSICIAN: Rajesh Salinas M.D. REASON FOR CONSULTATION: Hypoglycemia. HISTORY OF PRESENT ILLNESS: It is important to note that most of the history is obtained from review of the chart and medical records since the patient is not able to provide any meaningful history. The patient is an 83-year-old male, resident of a group home facility with underlying dementia, who presented to the hospital with dark emesis, GI bleeding, and is here for endoscopy today. Evaluated by Dr. Puentes, litigation services manager. This morning, he was noted to have glucose as low as 64. The patient has history of diabetes. PAST MEDICAL HISTORY: 1. COPD. 2. Diabetes. 3. Prostate cancer. 4. Dementia. 5. Chronic kidney disease. 6. Peptic ulcer disease. MEDICATIONS: Reviewed and reconciled. ALLERGIES: Tetanus toxoid. FAMILY HISTORY: Noncontributory. SOCIAL HISTORY: The patient is single. correction resident. His grandson looks after him. REVIEW OF SYSTEMS: Unobtainable. PHYSICAL EXAMINATION: VITAL SIGNS: Blood pressure is 170/80, pulse 70, temperature 98.2, and respiratory rate 18. HEENT: Pupils are reactive to light. Sclerae anicteric. NECK: No JVD. HEART: Regular rhythm. LUNGS: Clear. ABDOMEN: Positive bowel sounds. EXTREMITIES: No clubbing or cyanosis. Positive for edema. ASSESSMENT: 1. GI bleed. 2. Anemia. 3. Hypoglycemia. PLAN: I will change the IV fluid to D5 half NS at 75 mL/h with frequent glucose monitoring. No insulin coverage. We will follow the patient closely for glucose management. Thank you, Dr. Salinas, for the courtesy of this consultation. Salvador Vazquez M.D. DR: ELIZABETH/ROBERTA JOB#: [id number] CC:
--- NOTE | 2019-01-26 16:07 | NUR ---
CASE MANAGEMENT:REVIEW 83 YR OLD MALE BIBA FROM [facility] CC: COFFEE GROUND EMESIS SI: GIB. DEHYDRATION. UTI 98.4 75 16 177/76 90% ON RA BUN+50 IS: IV ZOFRAN IV PROTONIX 1L NS BOLUS CHEST XRAY : TO TELEMETRY
[2019-01-26] MEDS ORDERED: NovoLOG Insulin Flexpen SUBQ SCH (16:30)
--- NOTE | 2019-01-26 17:00 | Consultation ---
DATE OF CONSULTATION: 01/26/2019 DATE OF ADMISSION: 01/25/2019 CONSULTING PHYSICIAN: Jose Mendosa M.D. REFERRING PHYSICIAN: Rajesh Salinas M.D. REASON FOR CONSULTATION: Hypertensive urgency. HISTORY OF PRESENT ILLNESS: The patient is an 83-year-old gentleman who was admitted yesterday for evaluation of possible GI bleed. The patient's medications were held temporarily overnight, made NPO, and had his procedure today. We noted to have elevated blood pressure 195/80. He is currently resting postprocedure, no overt distress. Renal function stable. PAST MEDICAL HISTORY: 1. COPD. 2. Diabetes. 3. Prostate cancer. 4. Dementia. 5. Chronic kidney disease. PAST SURGICAL HISTORY: Noncontributory. ALLERGIES: Tetanus toxoid. FAMILY HISTORY: Noncontributory. SOCIAL HISTORY: detention resident. No tobacco, alcohol, or illicit drug use. REVIEW OF SYSTEMS: Cannot obtain as the patient is currently somnolent post GI procedure. LABORATORY DATA: Labs dated 01/25/2019, sodium 147, creatinine 1.3, potassium 4.7. Hemoglobin 10.1, white cell count 4.7, and platelet count 135,000. PHYSICAL EXAMINATION: VITAL SIGNS: Blood pressure 195/90, pulse 92, temperature 99.1, and 99% oxygen saturation on room air. GENERAL: The patient is awake, somnolent, but arousable. HEENT: Extraocular muscles intact. No lymphadenopathy noted. CARDIOVASCULAR: S1, S2. No rubs or gallops. PULMONARY: Clear to auscultation bilaterally. No rales, rhonchi, or wheezes. ABDOMINAL: Soft and nontender. EXTREMITIES: No edema. ASSESSMENT AND PLAN: 1. Hypertensive urgency. At this time, the patient has completed his EGD. He is now back on oral antihypertensive. I have re-initiated Norvasc, metoprolol, losartan. We will also add p.r.n. hydralazine. We will attempt not to decrease blood pressure too aggressively over the next 24 hours. Currently bring systolic down to approximately 150 to 160. 2. GI bleed. The patient underwent a EGD. Results are pending. 3. UTI. The patient is on antibiotics. 4. GERD. The patient on Protonix daily also for GI bleed. Jose Mendosa MD DR: SAHNE JOB#: [id number] CC:
--- NOTE | 2019-01-26 17:15 | Operative Note - Dictated ---
DATE OF OPERATION: 01/26/2019 PROCEDURE: Upper gastrointestinal endoscopy with biopsy. SURGEON: Hemant Puentes M.D. ANESTHESIOLOGIST: Dr. Smith. PRE-ENDOSCOPIC DIAGNOSIS: Upper gastrointestinal bleeding. POST-ENDOSCOPIC DIAGNOSES: 1. A 2 cm hiatal hernia. 2. 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 3. No active bleeding was identified. PROCEDURE: The procedure, its risks, indications, alternatives, and possible complications were explained to the patient's grandchild and informed consent was obtained. The patient was then sedated in the left lateral decubitus position and a diagnostic upper endoscope was introduced through the oropharynx and advanced to the duodenum. The endoscope was then gradually withdrawn and the mucosa examined carefully. Examination of the upper gastrointestinal mucosa revealed a J-shaped stomach. The duodenum and the stomach were free of any lesions or blood. In the esophagus, there was a 2 cm hiatal hernia. Above this, there was a 3 cm also segment of esophageal erythema, erosion, and salmon-colored discoloration. Biopsies were performed at 38 and 36 cm evangelist where the gastroesophageal junction felt to be approximately at 8 cm evangelist. There was no active bleeding. The patient was sent to recovery in good condition. COMPLICATIONS: None. RECOMMENDATIONS: 1. Follow up biopsy results. 2. Proton pump inhibitor. 3. Resume oral diet. 4. Reflux precautions. Hemant Puentes M.D. DR: JOVANNA JOB#: [id number] CC:
--- NOTE | 2019-01-26 17:27 | NUR ---
NURSE NOTES: Insulin was not given due to poor oral intake with 10% of dinner.
--- NOTE | 2019-01-26 19:35 | NUR ---
HAND-OFF: Report given to Payton RN. Pt remains stable..
--- NOTE | 2019-01-26 19:35 | NUR ---
NURSE NOTES: Received report from Michele JOHNSON. Pt is awake and resting in bed. In no acute distress. IV line intact and patent. Pt on cardiac exercise physiologist. Bed in lowest position, call light within reach. Will continue plan of care. Addendum: 01/26/19 at 1950 by Edis Hurtado RN Wrong entry
--- NOTE | 2019-01-26 20:05 | NUR ---
NURSE NOTES: Received pt and report from ELIZABETH Randhawa. Observed pt resting in bed with both eyes closed; arousable to voice. Pt is A/O x1. gambling monitor is in placed, IV site intact, asymptomatic, and patent. Bed is in the lowest position and locked. Call light within reach. No signs/symptoms of acute distress noted at this time. Pt has a Med-Surg order; awaiting for bed assignment. Will continue plan of care until transfer.
--- NOTE | 2019-01-26 20:45 | NUR ---
TRANSFER TO FLOOR: Patient transferred to [facility], per Dr. Salinas. Report given to ELIZABETH Ag. Belongings list checked and medications given to ELIZABETH Ag. front desk monitor removed. IV site intact, asymptomatic, and patent. Bed in the lowest position and locked. Orders transferred. Pt in stable condition.
[2019-01-26] MEDS: NovoLOG Insulin Flexpen SUBQ SCH (21:00)
[2019-01-26] MEDS ORDERED: Isovue-300 100ml vial INJ PRN (21:00)
--- NOTE | 2019-01-26 21:00 | NUR ---
NURSE NOTES: Pt arrived, received report from [facility]. Pt is asleep, confused and alert to name. Lethargic, eyes closed. In no acute distress, on room air. Belongings list checked upon arrival to the floor. IV site is not patent. Will try to reinsert access. Bed is in the lowest position and locked, side rails x3. Pt in stable condition.
[2019-01-26] MEDS: Pantoprazole Inj IVP SCH (22:16)
[2019-01-26] MEDS: Metoprolol Tartrate 50mg tab ORAL SCH (22:26)
[2019-01-27] VITALS: BP 173/73
--- NOTE | 2019-01-27 | NUR ---
NURSE NOTES: Despite high blood pressure pt refused administration of hydralazine, a prn. Explained risks and benefits to patient.
[2019-01-27 04:00] VITALS: BP 134/97
--- NOTE | 2019-01-27 05:15 | History and Physical Report ---
DATE OF ADMISSION: 01/25/2019 HISTORY OF PRESENT ILLNESS: He is admitted for abdominal pain and [facility] emesis [facility], low-grade fever, azotemia, dehydration, and UTI, admitted for those reasons. The patient is a very poor historian, cannot get reliable history from the patient, but those are the main reasons why the patient is being admitted for monitoring for the GI bleed, for the IV antibiotics and as well as for IV fluids, for the dehydration as well as for the treatment of the UTI and azotemia. PAST MEDICAL HISTORY: Significant for organic brain syndrome, dementia, hypertension, and BPH. ALLERGIES: To tetanus. MEDICATIONS: Losartan, amlodipine, Namenda, metoprolol, and Flomax. FAMILY HISTORY: Noncontributory. SOCIAL HISTORY: Denies history of alcohol or illicit drugs. Comes from a jail. REVIEW OF SYSTEMS: HEENT: Denies headaches. RESPIRATORY: Denies shortness of breath. Denies cough. CARDIOVASCULAR: Denies chest pain. GASTROINTESTINAL: He does have coffee-ground emesis; however, the patient is a poor historian. PHYSICAL EXAMINATION: VITAL SIGNS: Temperature is 98.8 degrees, pulse 78, and blood pressure 159/66. HEENT: PERRLA. NECK: Supple. No lymphadenopathy. CHEST: Clear to auscultation. CARDIOVASCULAR: Regular rate and rhythm. No murmurs or extra sounds. GASTROINTESTINAL: Soft, nontender, and nondistended. No organomegaly. EXTREMITIES: No edema. Moves all four extremities. NEUROLOGIC: Sensory intact to light touch. Reflexes equal on both sides. LABORATORY DATA: WBC of 7.5, hemoglobin 11.7, and platelets 172,000. Sodium 147, potassium 4.7, BUN of 15, creatinine of 1.3, and glucose of 167. Albumin of 2.8. ASSESSMENT AND PLAN: Admitted for GI bleed for monitoring, coffee-ground emesis, abdominal pain, low-grade fever, dehydration, azotemia, and UTI. The patient's abdomen is soft, which is a good sign. I have consulted Dr. Puentes, Dr. Jeter, Dr. Tremayne Bhatti, and Dr. Salvador Vazquez for the hypoglycemia as well as for the management of the UTI as well as further management of dehydration and GI bleed. Ali Agnieszka Salinas DR: DANIEL JOB#: [id number] CC:
[2019-01-27 05:57] LABS: ANION GAP 9 mmol/L (5-15); BLOOD UREA NITROGEN 19 mg/dL (7-18); CALCIUM 8.9 MG/DL (8.5-10.1); CARBON DIOXIDE 27 MMOL/L (21-32); CHLORIDE 110 MMOL/L (98-107); CREATININE 0.9 MG/DL (0.55-1.30); POTASSIUM 3.9 MMOL/L (3.5-5.1); SODIUM 146 MMOL/L (136-145)
[2019-01-27] MEDS: NovoLOG Insulin Flexpen SUBQ SCH ×4 (06:30→21:00)
--- NOTE | 2019-01-27 07:27 | NUR ---
HAND-OFF: Report given to ELIZABETH Estes.
--- NOTE | 2019-01-27 07:44 | NUR ---
NURSE NOTES: Received report from ELIZABETH Ag. Patient in bed resting, no active s/s cardiac, respiratory distress noticed at this time. Patient AOx1. Endorsed no n/v last night. IV on left wrist 24G, asymptomatic, patent, intact. Condom catheter draining well to gravity at this time. Bed in lowest position, side rails upx2, call light within reach. Will continue to monitor.
[2019-01-27 08:00] VITALS: BP 163/68
--- NOTE | 2019-01-27 08:34 | General Progress Note ---
Assessment/Plan Problem List: (1) UTI (urinary tract infection) ICD Codes: N39.0 - Urinary tract infection, site not specified SNOMED: 94144926 Qualifiers: Qualified Codes: N30.00 - Acute cystitis without hematuria (2) Dehydration ICD Codes: E86.0 - Dehydration SNOMED: 94337852 (3) Gastrointestinal hemorrhage ICD Codes: K92.2 - Gastrointestinal hemorrhage, unspecified SNOMED: 56506854 Qualifiers: Qualified Codes: K27.4 - Chronic or unspecified peptic ulcer, site unspecified, with hemorrhage (4) Hypoglycemia ICD Codes: E16.2 - Hypoglycemia, unspecified SNOMED: 651212976 (5) Diabetes mellitus ICD Codes: E11.9 - Type 2 diabetes mellitus without complications SNOMED: 16823070 Assessment/Plan: hypoglycemia resolved continue NISS ac / hs low dose Subjective Allergies: Coded Allergies: TETANUS TOXOID, ADSORBED (Verified Allergy, Unknown, 01/25/19) All Systems: reviewed and negative except above Subjective events noted glucose values are stable Item Value Date Time Bedside Blood Glucose 90 mg/dl 01/27/19 0630 Bedside Blood Glucose 101 mg/dl 01/26/19 2100 Bedside Blood Glucose 129 mg/dl H 01/26/19 1630 Bedside Blood Glucose 105 mg/dl 01/26/19 1201 Objective Last 24 Hour Vital Signs Date Time Temp Pulse Resp B/P (MAP) Pulse Ox O2 Delivery O2 Flow Rate FiO2 01/27/19 04:00 98.4 67 16 134/97 (109) 98 01/27/19 00:00 98.7 65 18 173/73 (106) 98 01/26/19 22:26 67 170/75 01/26/19 21:30 99.0 67 20 170/75 (106) 99 01/26/19 21:00 Room Air 01/26/19 20:00 99.0 67 20 170/75 (106) 99 01/26/19 17:35 98.8 72 20 156/61 (92) 93 01/26/19 16:11 78 159/66 (97) 01/26/19 16:11 159/66 01/26/19 16:00 81 01/26/19 15:49 83 158/68 (98) 01/26/19 14:58 173/75 01/26/19 14:56 77 173/75 (107) 01/26/19 14:17 79 20 172/74 (106) 01/26/19 12:00 85 01/26/19 11:52 92 195/90 01/26/19 11:52 92 195/90 01/26/19 11:25 99.1 92 20 195/90 (125) 99 01/26/19 09:00 Room Air Intake and Output 01/26/19 01/27/19 19:00 07:00 Intake Total 150 ml Output Total 200 ml 300 ml Balance -50 ml -300 ml Intake IV Total 150 ml Output Urine Total 200 ml 300 ml # Voids 1 Laboratory Tests 01/26/19 13:50: Prothrombin Time 10.5, Prothromb Time International Ratio 1.0 01/27/19 04:48: Sodium Level 146H, Potassium Level 3.9, Chloride Level 110H, Carbon Dioxide Level 27, Anion Gap 9, Blood Urea Nitrogen 19H, Creatinine 0.9, Estimat Glomerular Filtration Rate , Glucose Level 96, Calcium Level 8.9 Height (Feet): 5 Height (Inches): 6.00 Weight (Pounds): 101 General Appearance: no apparent distress Neck: normal alignment Cardiovascular: normal rate Respiratory/Chest: lungs clear Abdomen: normal bowel sounds Objective Current Medications Medications (Trade) Dose Ordered Sig/Sameer Route PRN Reason Start Time Stop Time Status Last Admin Dose Admin Acetaminophen (Tylenol) 650 mg Q4H PRN ORAL Mild Pain/Temp > 100.0 01/26/19 21:00 02/25/19 20:59 Amlodipine Besylate (Norvasc) 10 mg DAILY ORAL 01/27/19 09:00 02/25/19 11:44 Ceftriaxone Sodium 1 gm/ Dextrose 55 ml @ 110 mls/hr Q24H IVPB 01/27/19 13:00 02/02/19 12:59 Dextrose (Dextrose 50%) 25 ml Q30M PRN IV Hypoglycemia 01/26/19 21:30 02/24/19 15:59 Dextrose (Dextrose 50%) 50 ml Q30M PRN IV Hypoglycemia 01/26/19 21:30 02/24/19 15:59 Hydralazine HCl (Apresoline) 25 mg Q4H PRN ORAL For High Blood Pressure 01/26/19 21:00 02/25/19 20:59 Insulin Aspart (NovoLOG) BEFORE MEALS AND HS SUBQ 01/26/19 21:00 02/25/19 16:29 Iopamidol (Isovue-300 100ml) 100 ml NOW PRN INJ Radiology Procedure 01/26/19 21:00 01/28/19 20:59 Losartan Potassium (Cozaar) 100 mg DAILY ORAL 01/27/19 09:00 02/26/19 15:59 Metoprolol Tartrate (Lopressor) 50 mg EVERY 12 HOURS ORAL 01/26/19 21:00 02/25/19 11:44 01/26/19 22:26 Ondansetron HCl (Zofran) 4 mg Q6H PRN IVP Nausea & Vomiting 01/26/19 22:15 02/24/19 16:14 Pantoprazole (Protonix) 40 mg DAILY@2300 IVP 01/26/19 23:00 02/24/19 23:44 01/26/19 22:16 Salvador Vazquez MD Jan 27, 2019 08:34
[2019-01-27] MEDS: Losartan 50mg tab ORAL SCH (08:42)
[2019-01-27] MEDS: Metoprolol Tartrate 50mg tab ORAL SCH (08:43)
[2019-01-27] MEDS ORDERED: Losartan 50mg tab ORAL SCH (09:00)
[2019-01-27] MEDS ORDERED: Iron Sucrose 100 MG in NS 55 ML IV ONE (09:15)
--- NOTE | 2019-01-27 09:18 | Hematology/Onc Progress Note ---
Assessment/Plan Assessment/Plan ASSESSMENT/RECS: # Multiple lung nodules --> 2.8 cm right lower lobe masslike opacity. Possibly an area of scarring or focal consolidation, but the possibility of a mass lesion should also be considered. Similar 0.9 cm area within the right middle lobe. There is also basilar parenchymal scarring (R/O MALIGNANCY) --> consider pulm eval as needed --> may need ct chest and potentially biopsy as per pulm --> given advanced age, first consider dw pulm team # Anemia due to underlying gi bleed --> on protonix as per gi --> now off octreotide --> s/p egd and showed HH and barretts, potentially peptic ulcer --> hgb trend 11.7-->10.1 # Anemia due to iron deficiency --> confirm iron status, send off w/u--> with maik --> iv iron has been given x 1 dose --> abx treatment for h. pylori --> ppi for now # Dehydration --> started on iv fluids # Uti --> s/p abx cTX # Dvt ppx scds The timing of this note does not necessarily reflect the time of the patient was seen. Greatly appreciate consultation. Subjective Constitutional: Denies: no symptoms, chills, fever, malaise, weakness, other HEENT: Denies: no symptoms, eye pain, blurred vision, tearing, double vision, ear pain, ear discharge, nose pain, nose congestion, throat pain, throat swelling, mouth pain, mouth swelling, other Cardiovascular: Denies: no symptoms, chest pain, edema, irregular heart rate, lightheadedness, palpitations, syncope, other Respiratory: Denies: no symptoms, cough, shortness of breath, SOB with excertion, SOB at rest, sputum, wheezing, other Genitourinary: Denies: no symptoms, burning, discharge, frequency, flank pain, hematuria, incontinence, pain, urgency, other Neurologic/Psychiatric: Denies: no symptoms, anxiety, depressed, emotional problems, headache, numbness, paresthesia, pre-existing deficit, seizure, tingling, tremors, weakness, other Endocrine: Denies: no symptoms, excessive sweating, flushing, intolerance to cold, intolerance to heat, increased hunger, increased thirst, increased urine, unexplained weight gain, unexplained weight loss, other Hematologic/Lymphatic: Denies: no symptoms, anemia, easy bleeding, easy bruising, adenopathy, other Allergies: Coded Allergies: TETANUS TOXOID, ADSORBED (Verified Allergy, Unknown, 01/25/19) Subjective 01/27: no events, no bleeding, no night sweats, labs have been reviewed Objective Objective Current Medications Medications (Trade) Dose Ordered Sig/Sameer Route PRN Reason Start Time Stop Time Status Last Admin Dose Admin Acetaminophen (Tylenol) 650 mg Q4H PRN ORAL Mild Pain/Temp > 100.0 01/26/19 21:00 02/25/19 20:59 Amlodipine Besylate (Norvasc) 10 mg DAILY ORAL 01/27/19 09:00 02/25/19 11:44 01/27/19 08:42 Ceftriaxone Sodium 1 gm/ Dextrose 55 ml @ 110 mls/hr Q24H IVPB 01/27/19 13:00 02/02/19 12:59 Dextrose (Dextrose 50%) 25 ml Q30M PRN IV Hypoglycemia 01/26/19 21:30 02/24/19 15:59 Dextrose (Dextrose 50%) 50 ml Q30M PRN IV Hypoglycemia 01/26/19 21:30 02/24/19 15:59 Hydralazine HCl (Apresoline) 25 mg Q4H PRN ORAL For High Blood Pressure 01/26/19 21:00 02/25/19 20:59 Insulin Aspart (NovoLOG) BEFORE MEALS AND HS SUBQ 01/26/19 21:00 02/25/19 16:29 Iopamidol (Isovue-300 100ml) 100 ml NOW PRN INJ Radiology Procedure 01/26/19 21:00 01/28/19 20:59 Losartan Potassium (Cozaar) 100 mg DAILY ORAL 01/27/19 09:00 02/26/19 15:59 01/27/19 08:42 Metoprolol Tartrate (Lopressor) 50 mg EVERY 12 HOURS ORAL 01/26/19 21:00 02/25/19 11:44 01/27/19 08:43 Ondansetron HCl (Zofran) 4 mg Q6H PRN IVP Nausea & Vomiting 01/26/19 22:15 02/24/19 16:14 Pantoprazole (Protonix) 40 mg DAILY@2300 IVP 01/26/19 23:00 02/24/19 23:44 01/26/19 22:16 Last 24 Hour Vital Signs Date Time Temp Pulse Resp B/P (MAP) Pulse Ox O2 Delivery O2 Flow Rate FiO2 01/27/19 08:43 68 163/64 01/27/19 08:42 163/64 01/27/19 08:42 68 163/64 01/27/19 04:00 98.4 67 16 134/97 (109) 98 01/27/19 00:00 98.7 65 18 173/73 (106) 98 01/26/19 22:26 67 170/75 01/26/19 21:30 99.0 67 20 170/75 (106) 99 01/26/19 21:00 Room Air 01/26/19 20:00 99.0 67 20 170/75 (106) 99 01/26/19 17:35 98.8 72 20 156/61 (92) 93 01/26/19 16:11 78 159/66 (97) 01/26/19 16:11 159/66 01/26/19 16:00 81 01/26/19 15:49 83 158/68 (98) 01/26/19 14:58 173/75 01/26/19 14:56 77 173/75 (107) 01/26/19 14:17 79 20 172/74 (106) 01/26/19 12:00 85 01/26/19 11:52 92 195/90 01/26/19 11:52 92 195/90 01/26/19 11:25 99.1 92 20 195/90 (125) 99 01/26/19 09:00 Room Air 01/26/19 08:00 99.4 92 20 129/90 (103) 94 01/26/19 08:00 100 01/26/19 07:55 99.1 87 15 158/88 99 Nasal Cannula 3 01/26/19 07:44 90 15 159/73 99 Nasal Cannula 3 01/26/19 07:39 94 18 121/85 99 Nasal Cannula 3 01/26/19 07:37 94 17 96 01/26/19 07:34 99.4 94 17 133/72 96 Nasal Cannula 3 01/26/19 04:00 97.9 86 18 131/70 (90) 96 01/26/19 04:00 86 01/26/19 00:00 63 01/26/19 00:00 98.1 63 18 156/63 (94) 95 01/25/19 23:05 65 01/25/19 21:00 Room Air 01/25/19 20:00 97.9 65 18 111/58 (75) 98 01/25/19 15:36 73 01/25/19 15:07 Room Air 01/25/19 15:00 76 01/25/19 14:40 97.7 68 18 155/83 (107) 93 01/25/19 14:25 98.4 76 19 188/65 96 Room Air 01/25/19 11:43 76 19 Room Air 01/25/19 11:40 98.4 76 19 188/65 96 Room Air 01/25/19 10:59 98.4 75 16 177/76 (109) 90 Room Air Intake and Output 01/26/19 01/27/19 19:00 07:00 Intake Total 150 ml Output Total 200 ml 300 ml Balance -50 ml -300 ml Intake IV Total 150 ml Output Urine Total 200 ml 300 ml # Voids 1 Labs Test 01/25/19 11:00 01/25/19 13:17 01/25/19 13:19 01/26/19 06:26 White Blood Count 7.5 K/UL (4.8-10.8) 4.7 K/UL (4.8-10.8) Red Blood Count 3.76 M/UL (4.70-6.10) 3.29 M/UL (4.70-6.10) Hemoglobin 11.7 G/DL (14.2-18.0) 10.1 G/DL (14.2-18.0) Hematocrit 36.4 % (42.0-52.0) 32.3 % (42.0-52.0) Mean Corpuscular Volume 97 FL (80-99) 98 FL (80-99) Mean Corpuscular Hemoglobin 31.1 PG (27.0-31.0) 30.7 PG (27.0-31.0) Mean Corpuscular Hemoglobin Concent 32.1 G/DL (32.0-36.0) 31.3 G/DL (32.0-36.0) Red Cell Distribution Width 12.7 % (11.6-14.8) 12.8 % (11.6-14.8) Platelet Count 172 K/UL (150-450) 135 K/UL (150-450) Mean Platelet Volume 4.8 FL (6.5-10.1) 5.1 FL (6.5-10.1) Neutrophils (%) (Auto) 75.6 % (45.0-75.0) 76.0 % (45.0-75.0) Lymphocytes (%) (Auto) 15.8 % (20.0-45.0) 14.9 % (20.0-45.0) Monocytes (%) (Auto) 7.5 % (1.0-10.0) 7.8 % (1.0-10.0) Eosinophils (%) (Auto) 0.5 % (0.0-3.0) 0.9 % (0.0-3.0) Basophils (%) (Auto) 0.7 % (0.0-2.0) 0.4 % (0.0-2.0) Sodium Level 147 MMOL/L (136-145) 146 MMOL/L (136-145) Potassium Level 4.7 MMOL/L (3.5-5.1) 4.1 MMOL/L (3.5-5.1) Chloride Level 110 MMOL/L (98-107) 111 MMOL/L (98-107) Carbon Dioxide Level 32 MMOL/L (21-32) 26 MMOL/L (21-32) Anion Gap 5 mmol/L (5-15) 9 mmol/L (5-15) Blood Urea Nitrogen 50 mg/dL (7-18) 33 mg/dL (7-18) Creatinine 1.3 MG/DL (0.55-1.30) 1.1 MG/DL (0.55-1.30) Estimat Glomerular Filtration Rate mL/min (>60) mL/min (>60) Glucose Level 167 MG/DL (74-106) 176 MG/DL (74-106) Calcium Level 9.2 MG/DL (8.5-10.1) 8.8 MG/DL (8.5-10.1) Total Bilirubin 0.3 MG/DL (0.2-1.0) 0.3 MG/DL (0.2-1.0) Aspartate Amino Transf (AST/SGOT) 25 U/L (15-37) 19 U/L (15-37) Alanine Aminotransferase (ALT/SGPT) 18 U/L (12-78) 16 U/L (12-78) Alkaline Phosphatase 59 U/L (46-116) 56 U/L (46-116) Total Protein 6.8 G/DL (6.4-8.2) 6.5 G/DL (6.4-8.2) Albumin 2.8 G/DL (3.4-5.0) 2.7 G/DL (3.4-5.0) Globulin 4.0 g/dL 3.8 g/dL Albumin/Globulin Ratio 0.7 (1.0-2.7) 0.7 (1.0-2.7) Lipase 143 U/L (73-393) Prothrombin Time 11.0 SEC (9.30-11.50) Prothromb Time International Ratio 1.0 (0.9-1.1) Activated Partial Thromboplast Time 26 SEC (23-33) Urine Color Pale yellow Urine Appearance Clear Urine pH 7 (4.5-8.0) Urine Specific [place] 1.005 (1.005-1.035) Urine Protein 1+ (NEGATIVE) Urine Glucose (UA) Negative (NEGATIVE) Urine Ketones Negative (NEGATIVE) Urine Blood 5+ (NEGATIVE) Urine Nitrite Negative (NEGATIVE) Urine Bilirubin Negative (NEGATIVE) Urine Urobilinogen Normal MG/DL (0.0-1.0) Urine Leukocyte Esterase 3+ (NEGATIVE) Urine RBC 20-30 /HPF (0 - 0) Urine WBC 10-15 /HPF (0 - 0) Urine Squamous Epithelial Cells Occasional /LPF Urine Bacteria Occasional /HPF (NONE) Differential Total Cells Counted 100 Neutrophils % (Manual) 76 % (45-75) Lymphocytes % (Manual) 14 % (20-45) Monocytes % (Manual) 7 % (1-10) Eosinophils % (Manual) 3 % (0-3) Basophils % (Manual) 0 % (0-2) Band Neutrophils 0 % (0-8) Platelet Estimate Decreased Platelet Morphology Normal Hypochromasia 1+ Reticulocyte Count 0.5 % (0.5-2.0) Iron Level 60 ug/dL (50-175) Total Iron Binding Capacity 224 ug/dL (250-450) Percent Iron Saturation 27 % (15-50) Unsaturated Iron Binding 164 ug/dL (112-346) Ferritin 93 NG/ML (8-388) Folate 23.8 NG/ML (8.6-58.9) Thyroid Stimulating Hormone (TSH) 0.509 uiU/mL (0.358-3.740) Test 01/26/19 13:50 01/27/19 04:48 Prothrombin Time 10.5 SEC (9.30-11.50) Prothromb Time International Ratio 1.0 (0.9-1.1) Sodium Level 146 MMOL/L (136-145) Potassium Level 3.9 MMOL/L (3.5-5.1) Chloride Level 110 MMOL/L (98-107) Carbon Dioxide Level 27 MMOL/L (21-32) Anion Gap 9 mmol/L (5-15) Blood Urea Nitrogen 19 mg/dL (7-18) Creatinine 0.9 MG/DL (0.55-1.30) Estimat Glomerular Filtration Rate mL/min (>60) Glucose Level 96 MG/DL (74-106) Calcium Level 8.9 MG/DL (8.5-10.1) Height (Feet): 5 Height (Inches): 6.00 Weight (Pounds): 101 Objective PHYSICAL EXAMINATION: GENERAL: Debilitated, man, seen in his room. HEENT: Normocephalic, atraumatic. Dentition is poor. NECK: Supple. CHEST: Clear to auscultation. CARDIOVASCULAR: Revealed a regular rate. ABDOMEN: Soft with some old surgical scars of unclear nature. EXTREMITIES: Revealed some contractures. Bhupendra Fay MD Jan 27, 2019 09:18
--- NOTE | 2019-01-27 10:25 | General Progress Note ---
Assessment/Plan Problem List: (1) Vomiting ICD Codes: R11.10 - Vomiting, unspecified SNOMED: 530733223 (2) Gastrointestinal hemorrhage ICD Codes: K92.2 - Gastrointestinal hemorrhage, unspecified SNOMED: 77315143 Qualifiers: Qualified Codes: K27.4 - Chronic or unspecified peptic ulcer, site unspecified, with hemorrhage (3) Dehydration ICD Codes: E86.0 - Dehydration SNOMED: 41435330 (4) UTI (urinary tract infection) ICD Codes: N39.0 - Urinary tract infection, site not specified SNOMED: 06140574 Qualifiers: Qualified Codes: N30.00 - Acute cystitis without hematuria (5) Hypoglycemia ICD Codes: E16.2 - Hypoglycemia, unspecified SNOMED: 410199365 (6) Diabetes mellitus ICD Codes: E11.9 - Type 2 diabetes mellitus without complications SNOMED: 92896116 Status: stable, progressing Assessment/Plan: pt diet abx cbc bmp am Subjective Constitutional: Reports: weakness Allergies: Coded Allergies: TETANUS TOXOID, ADSORBED (Verified Allergy, Unknown, 01/25/19) All Systems: reviewed and negative except above Subjective sleepy calm Objective Last 24 Hour Vital Signs Date Time Temp Pulse Resp B/P (MAP) Pulse Ox O2 Delivery O2 Flow Rate FiO2 01/27/19 08:43 68 163/64 01/27/19 08:42 163/64 01/27/19 08:42 68 163/64 01/27/19 04:00 98.4 67 16 134/97 (109) 98 01/27/19 00:00 98.7 65 18 173/73 (106) 98 01/26/19 22:26 67 170/75 01/26/19 21:30 99.0 67 20 170/75 (106) 99 01/26/19 21:00 Room Air 01/26/19 20:00 99.0 67 20 170/75 (106) 99 01/26/19 17:35 98.8 72 20 156/61 (92) 93 01/26/19 16:11 78 159/66 (97) 01/26/19 16:11 159/66 01/26/19 16:00 81 01/26/19 15:49 83 158/68 (98) 01/26/19 14:58 173/75 01/26/19 14:56 77 173/75 (107) 01/26/19 14:17 79 20 172/74 (106) 01/26/19 12:00 85 01/26/19 11:52 92 195/90 01/26/19 11:52 92 195/90 01/26/19 11:25 99.1 92 20 195/90 (125) 99 Intake and Output 01/26/19 01/27/19 19:00 07:00 Intake Total 150 ml Output Total 200 ml 300 ml Balance -50 ml -300 ml Intake IV Total 150 ml Output Urine Total 200 ml 300 ml # Voids 1 Laboratory Tests 01/26/19 13:50: Prothrombin Time 10.5, Prothromb Time International Ratio 1.0 01/27/19 04:48: Sodium Level 146H, Potassium Level 3.9, Chloride Level 110H, Carbon Dioxide Level 27, Anion Gap 9, Blood Urea Nitrogen 19H, Creatinine 0.9, Estimat Glomerular Filtration Rate , Glucose Level 96, Calcium Level 8.9 Height (Feet): 5 Height (Inches): 6.00 Weight (Pounds): 101 General Appearance: lethargic EENT: normal ENT inspection Neck: normal alignment Cardiovascular: normal peripheral pulses, normal rate, regular rhythm Respiratory/Chest: chest wall non-tender, lungs clear, normal breath sounds Abdomen: normal bowel sounds, non tender, soft Extremities: normal inspection Edema: no edema noted Arm (L), no edema noted Arm (R), no edema noted Leg (L), no edema noted Leg (R), no edema noted Pedal (L), no edema noted Pedal (R), no edema noted Generalized Neurologic: motor weakness Skin: normal pigmentation, warm/dry Aleksandar Hays DO Jan 27, 2019 10:25
[2019-01-27 12:00] VITALS: BP 163/65
--- NOTE | 2019-01-27 12:28 | Nephrology Progress Note ---
Assessment/Plan Status: stable, progressing Assessment/Plan: A/P 1. Hypertensive urgency. I have re-initiated Norvasc, metoprolol, losartan. - BP improved. Will continue to adjust medications for SBP <160 in a patient > 70 years 2. GI bleed. The patient underwent a EGD. - per GI mgmt 3. UTI. The patient is on antibiotics. 4. GERD. The patient on Protonix daily also for GI bleed. Subjective Date patient seen: Jan 27, 2019 Time patient seen: 12:26 ROS Limited/Unobtainable: Yes Allergies: Coded Allergies: TETANUS TOXOID, ADSORBED (Verified Allergy, Unknown, 01/25/19) Subjective Patient in bed, min verbal Objective Last 24 Hour Vital Signs Date Time Temp Pulse Resp B/P (MAP) Pulse Ox O2 Delivery O2 Flow Rate FiO2 01/27/19 12:00 98.9 70 18 163/65 (97) 95 01/27/19 09:00 Room Air 01/27/19 08:43 68 163/64 01/27/19 08:42 163/64 01/27/19 08:42 68 163/64 01/27/19 08:00 98.2 68 17 163/68 (99) 95 01/27/19 04:00 98.4 67 16 134/97 (109) 98 01/27/19 00:00 98.7 65 18 173/73 (106) 98 01/26/19 22:26 67 170/75 01/26/19 21:30 99.0 67 20 170/75 (106) 99 01/26/19 21:00 Room Air 01/26/19 20:00 99.0 67 20 170/75 (106) 99 01/26/19 17:35 98.8 72 20 156/61 (92) 93 01/26/19 16:11 78 159/66 (97) 01/26/19 16:11 159/66 01/26/19 16:00 81 01/26/19 15:49 83 158/68 (98) 01/26/19 14:58 173/75 01/26/19 14:56 77 173/75 (107) 01/26/19 14:17 79 20 172/74 (106) Intake and Output 01/26/19 01/27/19 18:59 06:59 Intake Total 200 ml Output Total 200 ml 300 ml Balance 0 ml -300 ml Intake IV Total 200 ml Output Urine Total 200 ml 300 ml # Voids 1 Laboratory Tests 01/26/19 13:50: Prothrombin Time 10.5, Prothromb Time International Ratio 1.0 01/27/19 04:48: Sodium Level 146H, Potassium Level 3.9, Chloride Level 110H, Carbon Dioxide Level 27, Anion Gap 9, Blood Urea Nitrogen 19H, Creatinine 0.9, Estimat Glomerular Filtration Rate , Glucose Level 96, Calcium Level 8.9 Height (Feet): 5 Height (Inches): 6.00 Weight (Pounds): 101 General Appearance: no apparent distress EENT: normal ENT inspection Neck: normal alignment, supple Cardiovascular: normal rate, regular rhythm Respiratory/Chest: lungs clear, normal breath sounds Abdomen: non tender, soft Edema: no edema noted Arm (L), no edema noted Arm (R), no edema noted Leg (L), no edema noted Leg (R), no edema noted Pedal (L), no edema noted Pedal (R), no edema noted Generalized Jose Mendosa MD Jan 27, 2019 12:28
[2019-01-27] MEDS ORDERED: cefTRIAXone 1 GM in D5W 55 ML IVPB SCH (13:00)
[2019-01-27] MEDS ORDERED: Tubing IV Secondary IV ONE (15:58)
[2019-01-27] MEDS ORDERED: NS 275ml ONE (15:58)
[2019-01-27 16:00] VITALS: BP 130/69
--- NOTE | 2019-01-27 17:01 | NUR ---
CHARGE NURSE NOTE: Na 146, Chl.110. Dr. Mendosa notified.
--- NOTE | 2019-01-27 17:04 | General Progress Note ---
Assessment/Plan Status: stable, progressing Assessment/Plan: Assessment/Plan Assessment - UGIB - HH and GERD - OB (+) - Mild anemia - mild thrombocytopenia, ? etiol - OBS Recommendations - follow labs - Elevate HOB - IVF - PPI Subjective Allergies: Coded Allergies: TETANUS TOXOID, ADSORBED (Verified Allergy, Unknown, 01/25/19) Subjective Above noted confused no events overnight Objective Last 24 Hour Vital Signs Date Time Temp Pulse Resp B/P (MAP) Pulse Ox O2 Delivery O2 Flow Rate FiO2 01/27/19 12:00 98.9 70 18 163/65 (97) 95 01/27/19 09:00 Room Air 01/27/19 08:43 68 163/64 01/27/19 08:42 163/64 01/27/19 08:42 68 163/64 01/27/19 08:00 98.2 68 17 163/68 (99) 95 01/27/19 04:00 98.4 67 16 134/97 (109) 98 01/27/19 00:00 98.7 65 18 173/73 (106) 98 01/26/19 22:26 67 170/75 01/26/19 21:30 99.0 67 20 170/75 (106) 99 01/26/19 21:00 Room Air 01/26/19 20:00 99.0 67 20 170/75 (106) 99 01/26/19 17:35 98.8 72 20 156/61 (92) 93 Intake and Output 01/26/19 01/27/19 18:59 06:59 Intake Total 200 ml Output Total 200 ml 300 ml Balance 0 ml -300 ml Intake IV Total 200 ml Output Urine Total 200 ml 300 ml # Voids 1 Laboratory Tests 01/27/19 04:48: Sodium Level 146H, Potassium Level 3.9, Chloride Level 110H, Carbon Dioxide Level 27, Anion Gap 9, Blood Urea Nitrogen 19H, Creatinine 0.9, Estimat Glomerular Filtration Rate , Glucose Level 96, Calcium Level 8.9 Height (Feet): 5 Height (Inches): 6.00 Weight (Pounds): 101 Objective Thin AA man NCAT supple CTA RR abd soft no edema neuro OBS, confused Hemant Puentes MD Jan 27, 2019 17:04
--- NOTE | 2019-01-27 19:32 | NUR ---
HAND-OFF: Report given to ELIZABETH Sweet.
--- NOTE | 2019-01-27 19:44 | NUR ---
NURSE NOTES: Received pt sleeping in bed. Pt is on room air. NC 2L PRN. IV site intact and patent. Condom cath intact. No acute distress noted at this time. Bed lowest position, locked, alarm on, call light within reach. Will continue to monitor.
[2019-01-27 20:00] VITALS: BP 161/72
[2019-01-27] MEDS: Metoprolol 25mg tab ORAL SCH (21:15)
[2019-01-27] MEDS: Pantoprazole Inj IVP SCH (23:31)
[2019-01-28] VITALS (7 sets, daily range): BP systolic 149–179; BP diastolic 68–89
[2019-01-28] MEDS: NovoLOG Insulin Flexpen SUBQ SCH ×4 (06:01→21:25)
--- NOTE | 2019-01-28 07:36 | NUR ---
HAND-OFF: Report given to ELIZABETH Jacobs.
[2019-01-28 07:37] LABS: BASOPHILS % (AUTO) 0.3 % (0.0-2.0); HEMATOCRIT 35.2 % (42.0-52.0); HEMOGLOBIN 11.5 G/DL (14.2-18.0); LYMPHOCYTES % (AUTO) 18.6 % (20.0-45.0); MEAN CORPUSCULAR VOLUME 96 FL (80-99); MONOCYTES % (AUTO) 7.2 % (1.0-10.0); NEUTROPHILS % (AUTO) 72.8 % (45.0-75.0); PLATELET COUNT 151 K/UL (150-450); RED BLOOD COUNT 3.65 M/UL (4.70-6.10); RED CELL DISTRIBUTION WIDTH 12.7 % (11.6-14.8)
[2019-01-28 07:42] LABS: ANION GAP 7 mmol/L (5-15); BLOOD UREA NITROGEN 18 mg/dL (7-18); CALCIUM 9.3 MG/DL (8.5-10.1); CARBON DIOXIDE 28 MMOL/L (21-32); CHLORIDE 107 MMOL/L (98-107); POTASSIUM 4.2 MMOL/L (3.5-5.1); SODIUM 142 MMOL/L (136-145)
--- NOTE | 2019-01-28 08:21 | NUR ---
NURSE NOTES: Pt. in bed awake and talking. pt shows no signs of cardiac or respiratory distress at this time. Call light at bedside. Bed is locked and in lowest position. Iv on L wrist dry and intact running TKO. Will continue to follow plan of care and monitor blood pressure.
--- NOTE | 2019-01-28 10:22 | General Progress Note ---
Assessment/Plan Problem List: (1) Vomiting ICD Codes: R11.10 - Vomiting, unspecified SNOMED: 391956868 (2) Gastrointestinal hemorrhage ICD Codes: K92.2 - Gastrointestinal hemorrhage, unspecified SNOMED: 08280604 Qualifiers: Qualified Codes: K27.4 - Chronic or unspecified peptic ulcer, site unspecified, with hemorrhage (3) Dehydration ICD Codes: E86.0 - Dehydration SNOMED: 09674008 (4) UTI (urinary tract infection) ICD Codes: N39.0 - Urinary tract infection, site not specified SNOMED: 73770192 Qualifiers: Qualified Codes: N30.00 - Acute cystitis without hematuria (5) Hypoglycemia ICD Codes: E16.2 - Hypoglycemia, unspecified SNOMED: 630105076 (6) Diabetes mellitus ICD Codes: E11.9 - Type 2 diabetes mellitus without complications SNOMED: 54671026 Status: stable, progressing Assessment/Plan: pt diet abx cbc bmp am Subjective Constitutional: Reports: weakness Allergies: Coded Allergies: TETANUS TOXOID, ADSORBED (Verified Allergy, Unknown, 01/25/19) All Systems: reviewed and negative except above Subjective sleepy calm Objective Last 24 Hour Vital Signs Date Time Temp Pulse Resp B/P (MAP) Pulse Ox O2 Delivery O2 Flow Rate FiO2 01/28/19 08:00 98.6 82 18 153/75 (101) 98 01/28/19 06:20 179/68 (105) 01/28/19 04:12 179/89 01/28/19 04:00 98.0 68 19 179/89 (119) 96 01/28/19 00:00 98.8 59 21 155/71 (99) 95 01/27/19 21:15 68 161/72 01/27/19 21:00 Room Air 01/27/19 20:00 97.8 68 18 161/72 (101) 96 01/27/19 16:00 98.0 81 18 130/69 (89) 97 01/27/19 12:00 98.9 70 18 163/65 (97) 95 Intake and Output 01/27/19 01/28/19 19:00 07:00 Intake Total 850 ml Balance 850 ml Other 850 ml # Voids 2 # Bowel Movements 2 Laboratory Tests 01/28/19 06:26: White Blood Count 6.0, Red Blood Count 3.65L, Hemoglobin 11.5L, Hematocrit 35.2L , Mean Corpuscular Volume 96, Mean Corpuscular Hemoglobin 31.5H, Mean Corpuscular Hemoglobin Concent 32.7, Red Cell Distribution Width 12.7, Platelet Count 151, Mean Platelet Volume 5.0L, Neutrophils (%) (Auto) 72.8, Lymphocytes ( %) (Auto) 18.6L, Monocytes (%) (Auto) 7.2, Eosinophils (%) (Auto) 1.0, Basophils (%) (Auto) 0.3, Sodium Level 142, Potassium Level 4.2, Chloride Level 107, Carbon Dioxide Level 28, Anion Gap 7, Blood Urea Nitrogen 18, Creatinine 1.0, Estimat Glomerular Filtration Rate , Glucose Level 88, Calcium Level 9.3 Height (Feet): 5 Height (Inches): 6.00 Weight (Pounds): 101 General Appearance: lethargic EENT: normal ENT inspection Neck: normal alignment Cardiovascular: normal peripheral pulses, normal rate, regular rhythm Respiratory/Chest: chest wall non-tender, lungs clear, normal breath sounds Abdomen: normal bowel sounds, non tender, soft Extremities: normal inspection Edema: no edema noted Arm (L), no edema noted Arm (R), no edema noted Leg (L), no edema noted Leg (R), no edema noted Pedal (L), no edema noted Pedal (R), no edema noted Generalized Neurologic: motor weakness Skin: normal pigmentation, warm/dry Aleksandar Hays DO Jan 28, 2019 10:22
[2019-01-28] MEDS: Losartan 50mg tab ORAL SCH (10:27)
[2019-01-28] MEDS: Metoprolol 25mg tab ORAL SCH ×2 (10:28→21:19)
--- NOTE | 2019-01-28 11:11 | Nephrology Progress Note ---
Assessment/Plan Status: stable, progressing Assessment/Plan: A/P 1. Hypertensive urgency. I have re-initiated Norvasc, metoprolol, losartan. Add hydralazine today - BP improved. - Will continue to adjust medications for SBP <160 in a patient > 70 years 2. GI bleed. The patient underwent a EGD. - per GI mgmt 3. UTI. The patient is on antibiotics. 4. GERD. The patient on Protonix daily also for GI bleed. Subjective Date patient seen: Jan 28, 2019 Time patient seen: 11:10 ROS Limited/Unobtainable: No Allergies: Coded Allergies: TETANUS TOXOID, ADSORBED (Verified Allergy, Unknown, 01/25/19) Subjective Patient in bed more awake today Objective Last 24 Hour Vital Signs Date Time Temp Pulse Resp B/P (MAP) Pulse Ox O2 Delivery O2 Flow Rate FiO2 01/28/19 10:28 82 153/75 01/28/19 10:28 82 153/75 01/28/19 10:27 153/75 01/28/19 08:00 98.6 82 18 153/75 (101) 98 01/28/19 06:20 179/68 (105) 01/28/19 04:12 179/89 01/28/19 04:00 98.0 68 19 179/89 (119) 96 01/28/19 00:00 98.8 59 21 155/71 (99) 95 01/27/19 21:15 68 161/72 01/27/19 21:00 Room Air 01/27/19 20:00 97.8 68 18 161/72 (101) 96 01/27/19 16:00 98.0 81 18 130/69 (89) 97 01/27/19 12:00 98.9 70 18 163/65 (97) 95 Intake and Output 01/27/19 01/28/19 19:00 07:00 Intake Total 850 ml Balance 850 ml Other 850 ml # Voids 2 # Bowel Movements 2 Laboratory Tests 01/28/19 06:26: White Blood Count 6.0, Red Blood Count 3.65L, Hemoglobin 11.5L, Hematocrit 35.2L , Mean Corpuscular Volume 96, Mean Corpuscular Hemoglobin 31.5H, Mean Corpuscular Hemoglobin Concent 32.7, Red Cell Distribution Width 12.7, Platelet Count 151, Mean Platelet Volume 5.0L, Neutrophils (%) (Auto) 72.8, Lymphocytes ( %) (Auto) 18.6L, Monocytes (%) (Auto) 7.2, Eosinophils (%) (Auto) 1.0, Basophils (%) (Auto) 0.3, Sodium Level 142, Potassium Level 4.2, Chloride Level 107, Carbon Dioxide Level 28, Anion Gap 7, Blood Urea Nitrogen 18, Creatinine 1.0, Estimat Glomerular Filtration Rate , Glucose Level 88, Calcium Level 9.3 Height (Feet): 5 Height (Inches): 6.00 Weight (Pounds): 101 General Appearance: no apparent distress, confused EENT: normal ENT inspection Neck: normal alignment, supple Cardiovascular: normal rate, regular rhythm Respiratory/Chest: lungs clear, normal breath sounds Abdomen: non tender, soft Edema: no edema noted Arm (L), no edema noted Arm (R), no edema noted Leg (L), no edema noted Leg (R), no edema noted Pedal (L), no edema noted Pedal (R), no edema noted Generalized Jose Mendosa MD Jan 28, 2019 11:11
--- NOTE | 2019-01-28 12:48 | Infectious Diseases Prog Note ---
Assessment/Plan Assessment/Plan IMPRESSION: Pyuria and hematuria. likely UTI. treated Coffee-ground vomiting. diabetes mellitus, chronic kidney disease, dementia, prostatic cancer, ventral hernia, L1 compression fracture. GERD Hiatal hernia RECOMMENDATIONS: Discontinue ceftriaxone. Negative cultures. Subjective ROS Limited/Unobtainable: Yes Respiratory: Reports: no symptoms Gastrointestinal/Abdominal: Reports: no symptoms Neurologic: Reports: other - more communicative Allergies: Coded Allergies: TETANUS TOXOID, ADSORBED (Verified Allergy, Unknown, 01/25/19) Objective Vital Signs Last 24 Hour Vital Signs Date Time Temp Pulse Resp B/P (MAP) Pulse Ox O2 Delivery O2 Flow Rate FiO2 01/28/19 10:28 82 153/75 01/28/19 10:28 82 153/75 01/28/19 10:27 153/75 01/28/19 08:00 98.6 82 18 153/75 (101) 98 01/28/19 06:20 179/68 (105) 01/28/19 04:12 179/89 01/28/19 04:00 98.0 68 19 179/89 (119) 96 01/28/19 00:00 98.8 59 21 155/71 (99) 95 01/27/19 21:15 68 161/72 01/27/19 21:00 Room Air 01/27/19 20:00 97.8 68 18 161/72 (101) 96 01/27/19 16:00 98.0 81 18 130/69 (89) 97 Height (Feet): 5 Height (Inches): 6.00 Weight (Pounds): 101 General Appearance: no acute distress HEENT: mucous membranes moist Respiratory/Chest: lungs clear Cardiovascular: normal rate Abdomen: soft, non tender Extremities: no edema Neurologic/Psychiatric: alert, responsive Musculoskeletal: atrophy Microbiology Date/Time Source Procedure Growth Status 01/25/19 13:30 Nasal Nares MRSA Culture - Final NO METHICILLIN RESISTANT STAPH AUREUS... Complete 01/25/19 13:19 Urine,Clean Catch Urine Culture - Final NO GROWTH AFTER 48 HOURS Complete 01/25/19 13:30 Rectum - Final NO CARBAPENEM-RESISTANT ENTEROBACTERI... Complete 01/25/19 13:30 Rectum VRE Culture - Final NO VANCOMYCIN RESISTANT ENTEROCOCCUS ... Complete Laboratory Tests Test 01/28/19 06:26 White Blood Count 6.0 K/UL (4.8-10.8) Red Blood Count 3.65 M/UL (4.70-6.10) L Hemoglobin 11.5 G/DL (14.2-18.0) L Hematocrit 35.2 % (42.0-52.0) L Mean Corpuscular Volume 96 FL (80-99) Mean Corpuscular Hemoglobin 31.5 PG (27.0-31.0) H Mean Corpuscular Hemoglobin Concent 32.7 G/DL (32.0-36.0) Red Cell Distribution Width 12.7 % (11.6-14.8) Platelet Count 151 K/UL (150-450) Mean Platelet Volume 5.0 FL (6.5-10.1) L Neutrophils (%) (Auto) 72.8 % (45.0-75.0) Lymphocytes (%) (Auto) 18.6 % (20.0-45.0) L Monocytes (%) (Auto) 7.2 % (1.0-10.0) Eosinophils (%) (Auto) 1.0 % (0.0-3.0) Basophils (%) (Auto) 0.3 % (0.0-2.0) Sodium Level 142 MMOL/L (136-145) Potassium Level 4.2 MMOL/L (3.5-5.1) Chloride Level 107 MMOL/L (98-107) Carbon Dioxide Level 28 MMOL/L (21-32) Anion Gap 7 mmol/L (5-15) Blood Urea Nitrogen 18 mg/dL (7-18) Creatinine 1.0 MG/DL (0.55-1.30) Estimat Glomerular Filtration Rate mL/min (>60) Glucose Level 88 MG/DL (74-106) Calcium Level 9.3 MG/DL (8.5-10.1) Current Medications Medications (Trade) Dose Ordered Sig/Sameer Route PRN Reason Start Time Stop Time Status Last Admin Dose Admin Acetaminophen (Tylenol) 650 mg Q4H PRN ORAL Mild Pain/Temp > 100.0 01/26/19 21:00 02/25/19 20:59 Amlodipine Besylate (Norvasc) 10 mg DAILY ORAL 01/27/19 09:00 02/25/19 11:44 01/28/19 10:28 Ceftriaxone Sodium 1 gm/ Dextrose 55 ml @ 110 mls/hr Q24H IVPB 01/27/19 13:00 02/02/19 12:59 01/27/19 13:01 Dextrose (Dextrose 50%) 25 ml Q30M PRN IV Hypoglycemia 01/26/19 21:30 02/24/19 15:59 Dextrose (Dextrose 50%) 50 ml Q30M PRN IV Hypoglycemia 01/26/19 21:30 02/24/19 15:59 Hydralazine HCl (Apresoline) 25 mg Q4H PRN ORAL For High Blood Pressure 01/26/19 21:00 02/25/19 20:59 01/28/19 04:12 Hydralazine HCl (Apresoline) 50 mg Q8HR ORAL 01/28/19 14:00 02/27/19 13:59 Insulin Aspart (NovoLOG) BEFORE MEALS AND HS SUBQ 01/26/19 21:00 02/25/19 16:29 Iopamidol (Isovue-300 100ml) 100 ml NOW PRN INJ Radiology Procedure 01/26/19 21:00 01/28/19 20:59 Losartan Potassium (Cozaar) 100 mg DAILY ORAL 01/27/19 09:00 02/26/19 15:59 01/28/19 10:27 Metoprolol Tartrate (Lopressor) 75 mg EVERY 12 HOURS ORAL 01/27/19 21:00 02/25/19 11:44 01/28/19 10:28 Ondansetron HCl (Zofran) 4 mg Q6H PRN IVP Nausea & Vomiting 01/26/19 22:15 02/24/19 16:14 Pantoprazole (Protonix) 40 mg DAILY@2300 IVP 01/26/19 23:00 02/24/19 23:44 01/27/19 23:31 Tremayne Bhatti MD Jan 28, 2019 12:48
[2019-01-28] MEDS: HydrALAZINE 50mg tab ORAL SCH (13:26)
--- NOTE | 2019-01-28 15:24 | Cardiology Report ---
APPROVED REPORT EKG Measurement Heart [id number] Normal sinus rhythm Anterior infarct, age undetermined Abnormal ECG
--- NOTE | 2019-01-28 16:55 | NUR ---
NURSE NOTES: Found pt on floor. Assisted pt back to bed. No complains of pain or any apparent distress noted at this time. Neuro assessment done, will follow protocol. V/S were obtained B/P 149/79 HR 79, R-19, O2 sat 100. Bed alarm on and active. Notified Radha Salinas, head CT ordered entered and carried out. Will continue to monitor and assess pt.
--- NOTE | 2019-01-28 17:30 | Diagnostic Imaging Report ---
Indications: Head pain, status post fall Technique: Spiral acquisitions obtained through the brain. Angled axial and coronal 5 x 5 mm slices were reconstructed. Total dose length product 1376.03 mGycm. CTDI vol(s) 70.38 mGy. Dose reduction achieved using automated exposure control Comparison: None. Findings: There is marked age-related enlargement of the ventricles and extra axial CSF spaces. There is considerable periventricular deep white matter low-attenuation, consistent with chronic microvascular ischemic change. 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 No acute intracranial hemorrhage or edema, mass effect, nor midline shift. Otherwise normal montanez-white differentiation. The mastoids are clear. The calvarium is intact. Visualized orbits are unremarkable.. There is trace fluid within the left sphenoid sinus Impression: Chronic and age-related changes Negative for acute intracranial bleed or mass effect Minimal sphenoid sinus disease This agrees with the preliminary interpretation provided overnight by [facility] teleradiology service. The CT scanner at [facility] is accredited by the [employer] and the scans are performed using protocols designed to limit radiation exposure to as low as reasonably achievable to attain images of sufficient resolution adequate for diagnostic evaluation.
--- NOTE | 2019-01-28 17:45 | NUR ---
NURSE NOTES: Neuro assessment done. Pt is not complaining of pain and is alert and talking.
--- NOTE | 2019-01-28 18:30 | NUR ---
NURSE NOTES: pt is alert and talking neuro assessment done. Pt is not complaining of pain.
--- NOTE | 2019-01-28 19:33 | NUR ---
NURSE NOTES: Received report from ELIZABETH Jacobs that pt fell and was found on the floor. CT head result was no bleeding or fracture of head. Pt doesn't have any pain. No IV access noted. Will insert new IV. Pt AAO x 1, confused. NC 2L /min as needed. Bed locked, lowest position, alarm on, side rails up x 3. RN educated pt to use call light when pt needs to help. Will continue to monitor.
--- NOTE | 2019-01-28 19:35 | General Progress Note ---
Assessment/Plan Status: stable, progressing Assessment/Plan: Assessment/Plan Assessment - UGIB - HH and GERD - OB (+) - Mild anemia - mild thrombocytopenia, resolved - OBS Recommendations - follow labs - Elevate HOB - IVF - PPI Subjective Allergies: Coded Allergies: TETANUS TOXOID, ADSORBED (Verified Allergy, Unknown, 01/25/19) Subjective Above noted NAD no abdominal pain Objective Last 24 Hour Vital Signs Date Time Temp Pulse Resp B/P (MAP) Pulse Ox O2 Delivery O2 Flow Rate FiO2 01/28/19 16:00 98.6 79 19 149/79 (102) 100 01/28/19 13:26 167/72 01/28/19 12:00 97.9 65 20 167/72 (103) 92 01/28/19 10:28 82 153/75 01/28/19 10:28 82 153/75 01/28/19 10:27 153/75 01/28/19 09:00 Room Air 01/28/19 08:00 98.6 82 18 153/75 (101) 98 01/28/19 06:20 179/68 (105) 01/28/19 04:12 179/89 01/28/19 04:00 98.0 68 19 179/89 (119) 96 01/28/19 00:00 98.8 59 21 155/71 (99) 95 01/27/19 21:15 68 161/72 01/27/19 21:00 Room Air 01/27/19 20:00 97.8 68 18 161/72 (101) 96 Intake and Output 01/27/19 01/28/19 18:59 06:59 Intake Total 850 ml Balance 850 ml Other 850 ml # Voids 2 # Bowel Movements 2 Laboratory Tests 01/28/19 06:26: White Blood Count 6.0, Red Blood Count 3.65L, Hemoglobin 11.5L, Hematocrit 35.2L , Mean Corpuscular Volume 96, Mean Corpuscular Hemoglobin 31.5H, Mean Corpuscular Hemoglobin Concent 32.7, Red Cell Distribution Width 12.7, Platelet Count 151, Mean Platelet Volume 5.0L, Neutrophils (%) (Auto) 72.8, Lymphocytes ( %) (Auto) 18.6L, Monocytes (%) (Auto) 7.2, Eosinophils (%) (Auto) 1.0, Basophils (%) (Auto) 0.3, Sodium Level 142, Potassium Level 4.2, Chloride Level 107, Carbon Dioxide Level 28, Anion Gap 7, Blood Urea Nitrogen 18, Creatinine 1.0, Estimat Glomerular Filtration Rate , Glucose Level 88, Calcium Level 9.3 Height (Feet): 5 Height (Inches): 6.00 Weight (Pounds): 101 Objective Thin AA man NCAT supple CTA RR abd soft no edema neuro OBS, confused Hemant Puentes MD Jan 28, 2019 19:35
--- NOTE | 2019-01-28 19:53 | NUR ---
HAND-OFF: Report given to Sweet/rn. Pt in stable condition. Endorsed, Iv needs to be inserted.
[2019-01-29] VITALS: BP 135/55
[2019-01-29] MEDS: HydrALAZINE 50mg tab ORAL SCH ×2 (00:09→05:58)
[2019-01-29] MEDS: Pantoprazole Inj IVP SCH (00:14)
[2019-01-29 04:00] VITALS: BP 142/71
[2019-01-29] MEDS: NovoLOG Insulin Flexpen SUBQ SCH ×2 (05:56→11:27)
--- NOTE | 2019-01-29 06:35 | General Progress Note ---
Assessment/Plan Problem List: (1) UTI (urinary tract infection) ICD Codes: N39.0 - Urinary tract infection, site not specified SNOMED: 00637288 Qualifiers: Qualified Codes: N30.00 - Acute cystitis without hematuria (2) Dehydration ICD Codes: E86.0 - Dehydration SNOMED: 65681948 (3) Gastrointestinal hemorrhage ICD Codes: K92.2 - Gastrointestinal hemorrhage, unspecified SNOMED: 72516898 Qualifiers: Qualified Codes: K27.4 - Chronic or unspecified peptic ulcer, site unspecified, with hemorrhage (4) Hypoglycemia ICD Codes: E16.2 - Hypoglycemia, unspecified SNOMED: 241872632 (5) Diabetes mellitus ICD Codes: E11.9 - Type 2 diabetes mellitus without complications SNOMED: 63711156 Status: stable, progressing Assessment/Plan: hypoglycemia resolved continue NISS ac / hs low dose Subjective Allergies: Coded Allergies: TETANUS TOXOID, ADSORBED (Verified Allergy, Unknown, 01/25/19) Subjective events noted glucose values are stable Item Value Date Time Bedside Blood Glucose 83 mg/dl 01/29/19 0556 Bedside Blood Glucose 124 mg/dl H 01/28/19 2125 Bedside Blood Glucose 228 mg/dl H 01/28/19 1811 Bedside Blood Glucose 127 mg/dl H 01/28/19 1328 Bedside Blood Glucose 91 mg/dl 01/28/19 0601 Objective Last 24 Hour Vital Signs Date Time Temp Pulse Resp B/P (MAP) Pulse Ox O2 Delivery O2 Flow Rate FiO2 01/29/19 05:58 142/71 01/29/19 04:00 98.2 70 20 142/71 (94) 98 01/29/19 00:09 135/55 01/29/19 00:00 97.8 61 20 135/55 (81) 93 01/28/19 21:19 67 152/72 01/28/19 21:00 Room Air 01/28/19 20:00 97.4 67 20 152/72 (98) 97 01/28/19 16:00 98.6 79 19 149/79 (102) 100 01/28/19 13:26 167/72 01/28/19 12:00 97.9 65 20 167/72 (103) 92 01/28/19 10:28 82 153/75 01/28/19 10:28 82 153/75 01/28/19 10:27 153/75 01/28/19 09:00 Room Air 01/28/19 08:00 98.6 82 18 153/75 (101) 98 Intake and Output 01/28/19 01/29/19 19:00 07:00 Output Total 200 ml Balance -200 ml Output Urine Total 200 ml # Voids 2 1 Height (Feet): 5 Height (Inches): 6.00 Weight (Pounds): 101 General Appearance: no apparent distress Neck: normal alignment Cardiovascular: normal rate Respiratory/Chest: lungs clear Abdomen: normal bowel sounds Pelvis: normal external exam Objective Current Medications Medications (Trade) Dose Ordered Sig/Sameer Route PRN Reason Start Time Stop Time Status Last Admin Dose Admin Acetaminophen (Tylenol) 650 mg Q4H PRN ORAL Mild Pain/Temp > 100.0 01/26/19 21:00 02/25/19 20:59 Amlodipine Besylate (Norvasc) 10 mg DAILY ORAL 01/27/19 09:00 02/25/19 11:44 01/28/19 10:28 Dextrose (Dextrose 50%) 25 ml Q30M PRN IV Hypoglycemia 01/26/19 21:30 02/24/19 15:59 Dextrose (Dextrose 50%) 50 ml Q30M PRN IV Hypoglycemia 01/26/19 21:30 02/24/19 15:59 Hydralazine HCl (Apresoline) 25 mg Q4H PRN ORAL For High Blood Pressure 01/26/19 21:00 02/25/19 20:59 01/28/19 04:12 Hydralazine HCl (Apresoline) 50 mg Q8HR ORAL 01/28/19 14:00 02/27/19 13:59 01/29/19 05:58 Insulin Aspart (NovoLOG) BEFORE MEALS AND HS SUBQ 01/26/19 21:00 02/25/19 16:29 01/28/19 21:25 Losartan Potassium (Cozaar) 100 mg DAILY ORAL 01/27/19 09:00 02/26/19 15:59 01/28/19 10:27 Metoprolol Tartrate (Lopressor) 75 mg EVERY 12 HOURS ORAL 01/27/19 21:00 02/25/19 11:44 01/28/19 21:19 Ondansetron HCl (Zofran) 4 mg Q6H PRN IVP Nausea & Vomiting 01/26/19 22:15 02/24/19 16:14 Pantoprazole (Protonix) 40 mg DAILY@2300 IVP 01/26/19 23:00 02/24/19 23:44 01/29/19 00:14 Salvador Vazquez MD Jan 29, 2019 06:35
[2019-01-29 07:12] LABS: BASOPHILS % (AUTO) 0.9 % (0.0-2.0); HEMATOCRIT 35.7 % (42.0-52.0); HEMOGLOBIN 11.6 G/DL (14.2-18.0); LYMPHOCYTES % (AUTO) 19.4 % (20.0-45.0); MEAN CORPUSCULAR VOLUME 95 FL (80-99); MONOCYTES % (AUTO) 8.6 % (1.0-10.0); NEUTROPHILS % (AUTO) 70.2 % (45.0-75.0); PLATELET COUNT 137 K/UL (150-450); RED BLOOD COUNT 3.74 M/UL (4.70-6.10); WHITE BLOOD COUNT 5.8 K/UL (4.8-10.8)
[2019-01-29 07:14] LABS: ANION GAP 7 mmol/L (5-15); BLOOD UREA NITROGEN 16 mg/dL (7-18); CALCIUM 9.5 MG/DL (8.5-10.1); CARBON DIOXIDE 29 MMOL/L (21-32); CHLORIDE 106 MMOL/L (98-107); POTASSIUM 3.5 MMOL/L (3.5-5.1); SODIUM 142 MMOL/L (136-145)
--- NOTE | 2019-01-29 07:15 | NUR ---
HAND-OFF: Report given to ELIZABETH Beckman.
[2019-01-29 08:05] VITALS: BP 166/77
[2019-01-29] MEDS: Metoprolol 25mg tab ORAL SCH (08:21)
[2019-01-29] MEDS: Losartan 50mg tab ORAL SCH (08:21)
--- NOTE | 2019-01-29 09:14 | NUR ---
nurse notes received patient resting comfortably in bed, Patient AAO x 1, confused.on O2 at 2L /min , on fall and aspiration precaution, turn q2h for comfort and good circulation, Bed locked, lowest position, alarm on, side rails, educated and instructed patient to use o use call light when pt needs to help. Will continue to monitor. grey clark
[2019-01-29 09:16] VITALS: BP 147/62
--- NOTE | 2019-01-29 10:27 | Nephrology Progress Note ---
Assessment/Plan Problem List: (1) Hypertensive urgency (2) Gastrointestinal hemorrhage (3) UTI (urinary tract infection) Assessment Hypertensive urgency UTI GI bleed Other conditions 1. COPD. 2. Diabetes. 3. Prostate cancer. 4. Dementia. 5. Chronic kidney disease. Plan BP meds- adjusted- Parameters put continue per consultants monitor renal parameters Subjective ROS Limited/Unobtainable: No Constitutional: Reports: malaise Objective Objective Last 24 Hour Vital Signs Date Time Temp Pulse Resp B/P (MAP) Pulse Ox O2 Delivery O2 Flow Rate FiO2 01/29/19 09:16 147/62 (90) 01/29/19 08:35 Room Air 01/29/19 08:21 77 166/77 01/29/19 08:21 166/77 01/29/19 08:21 77 166/77 01/29/19 08:05 97.9 77 19 166/77 (106) 98 01/29/19 05:58 142/71 01/29/19 04:00 98.2 70 20 142/71 (94) 98 01/29/19 00:09 135/55 01/29/19 00:00 97.8 61 20 135/55 (81) 93 01/28/19 21:19 67 152/72 01/28/19 21:00 Room Air 01/28/19 20:00 97.4 67 20 152/72 (98) 97 01/28/19 16:00 98.6 79 19 149/79 (102) 100 01/28/19 13:26 167/72 01/28/19 12:00 97.9 65 20 167/72 (103) 92 01/28/19 10:28 82 153/75 01/28/19 10:28 82 153/75 01/28/19 10:27 153/75 Intake and Output 01/28/19 01/29/19 19:00 07:00 Output Total 200 ml Balance -200 ml Output Urine Total 200 ml # Voids 2 1 Laboratory Tests 01/29/19 06:25: White Blood Count 5.8, Red Blood Count 3.74L, Hemoglobin 11.6L, Hematocrit 35.7L , Mean Corpuscular Volume 95, Mean Corpuscular Hemoglobin 31.0, Mean Corpuscular Hemoglobin Concent 32.5, Red Cell Distribution Width 13.0, Platelet Count 137L, Mean Platelet Volume 5.4L, Neutrophils (%) (Auto) 70.2, Lymphocytes (%) (Auto) 19.4L, Monocytes (%) (Auto) 8.6, Eosinophils (%) (Auto) 1.0, Basophils (%) (Auto) 0.9, Sodium Level 142, Potassium Level 3.5, Chloride Level 106, Carbon Dioxide Level 29, Anion Gap 7, Blood Urea Nitrogen 16, Creatinine 1.0, Estimat Glomerular Filtration Rate , Glucose Level 93, Calcium Level 9.5 Height (Feet): 5 Height (Inches): 6.00 Weight (Pounds): 101 General Appearance: no apparent distress Cardiovascular: normal rate Respiratory/Chest: decreased breath sounds Abdomen: soft Objective no change Hi Jeter MD Jan 29, 2019 10:27
--- NOTE | 2019-01-29 10:57 | General Progress Note ---
Assessment/Plan Status: stable, progressing Assessment/Plan: Assessment/Plan Assessment - UGIB - HH and GERD - OB (+) - Mild anemia - mild thrombocytopenia, resolved - OBS Recommendations - follow labs - Elevate HOB - IVF - PPI - Tums PRN hiccups Subjective Allergies: Coded Allergies: TETANUS TOXOID, ADSORBED (Verified Allergy, Unknown, 01/25/19) Subjective Above noted NAD no abdominal pain Objective Last 24 Hour Vital Signs Date Time Temp Pulse Resp B/P (MAP) Pulse Ox O2 Delivery O2 Flow Rate FiO2 01/29/19 09:16 147/62 (90) 01/29/19 08:35 Room Air 01/29/19 08:21 77 166/77 01/29/19 08:21 166/77 01/29/19 08:21 77 166/77 01/29/19 08:05 97.9 77 19 166/77 (106) 98 01/29/19 05:58 142/71 01/29/19 04:00 98.2 70 20 142/71 (94) 98 01/29/19 00:09 135/55 01/29/19 00:00 97.8 61 20 135/55 (81) 93 01/28/19 21:19 67 152/72 01/28/19 21:00 Room Air 01/28/19 20:00 97.4 67 20 152/72 (98) 97 01/28/19 16:00 98.6 79 19 149/79 (102) 100 01/28/19 13:26 167/72 01/28/19 12:00 97.9 65 20 167/72 (103) 92 Intake and Output 01/28/19 01/29/19 19:00 07:00 Output Total 200 ml Balance -200 ml Output Urine Total 200 ml # Voids 2 1 Laboratory Tests 01/29/19 06:25: White Blood Count 5.8, Red Blood Count 3.74L, Hemoglobin 11.6L, Hematocrit 35.7L , Mean Corpuscular Volume 95, Mean Corpuscular Hemoglobin 31.0, Mean Corpuscular Hemoglobin Concent 32.5, Red Cell Distribution Width 13.0, Platelet Count 137L, Mean Platelet Volume 5.4L, Neutrophils (%) (Auto) 70.2, Lymphocytes (%) (Auto) 19.4L, Monocytes (%) (Auto) 8.6, Eosinophils (%) (Auto) 1.0, Basophils (%) (Auto) 0.9, Sodium Level 142, Potassium Level 3.5, Chloride Level 106, Carbon Dioxide Level 29, Anion Gap 7, Blood Urea Nitrogen 16, Creatinine 1.0, Estimat Glomerular Filtration Rate , Glucose Level 93, Calcium Level 9.5 Height (Feet): 5 Height (Inches): 6.00 Weight (Pounds): 101 Objective Thin AA man NCAT supple CTA RR abd soft no edema neuro OBS, confused Hemant Puentes MD Jan 29, 2019 10:57
[2019-01-29] MEDS ORDERED: Tums 500mg ORAL PRN (11:00)
--- NOTE | 2019-01-29 11:32 | Infectious Diseases Prog Note ---
Assessment/Plan Assessment/Plan IMPRESSION: Pyuria and hematuria. likely UTI. treated Coffee-ground vomiting. diabetes mellitus, chronic kidney disease, dementia, prostatic cancer, ventral hernia, L1 compression fracture. GERD Hiatal hernia RECOMMENDATIONS: Observe off antibiotic Subjective ROS Limited/Unobtainable: Yes Constitutional: Denies: fever Allergies: Coded Allergies: TETANUS TOXOID, ADSORBED (Verified Allergy, Unknown, 01/25/19) Objective Vital Signs Last 24 Hour Vital Signs Date Time Temp Pulse Resp B/P (MAP) Pulse Ox O2 Delivery O2 Flow Rate FiO2 01/29/19 09:16 147/62 (90) 01/29/19 08:35 Room Air 01/29/19 08:21 77 166/77 01/29/19 08:21 166/77 01/29/19 08:21 77 166/77 01/29/19 08:05 97.9 77 19 166/77 (106) 98 01/29/19 05:58 142/71 01/29/19 04:00 98.2 70 20 142/71 (94) 98 01/29/19 00:09 135/55 01/29/19 00:00 97.8 61 20 135/55 (81) 93 01/28/19 21:19 67 152/72 01/28/19 21:00 Room Air 01/28/19 20:00 97.4 67 20 152/72 (98) 97 01/28/19 16:00 98.6 79 19 149/79 (102) 100 01/28/19 13:26 167/72 01/28/19 12:00 97.9 65 20 167/72 (103) 92 Height (Feet): 5 Height (Inches): 6.00 Weight (Pounds): 101 General Appearance: no acute distress HEENT: mucous membranes moist Respiratory/Chest: lungs clear Cardiovascular: normal rate Abdomen: soft, non tender Extremities: no edema Neurologic/Psychiatric: other - sleeping Laboratory Tests Test 01/29/19 06:25 White Blood Count 5.8 K/UL (4.8-10.8) Red Blood Count 3.74 M/UL (4.70-6.10) L Hemoglobin 11.6 G/DL (14.2-18.0) L Hematocrit 35.7 % (42.0-52.0) L Mean Corpuscular Volume 95 FL (80-99) Mean Corpuscular Hemoglobin 31.0 PG (27.0-31.0) Mean Corpuscular Hemoglobin Concent 32.5 G/DL (32.0-36.0) Red Cell Distribution Width 13.0 % (11.6-14.8) Platelet Count 137 K/UL (150-450) L Mean Platelet Volume 5.4 FL (6.5-10.1) L Neutrophils (%) (Auto) 70.2 % (45.0-75.0) Lymphocytes (%) (Auto) 19.4 % (20.0-45.0) L Monocytes (%) (Auto) 8.6 % (1.0-10.0) Eosinophils (%) (Auto) 1.0 % (0.0-3.0) Basophils (%) (Auto) 0.9 % (0.0-2.0) Sodium Level 142 MMOL/L (136-145) Potassium Level 3.5 MMOL/L (3.5-5.1) Chloride Level 106 MMOL/L (98-107) Carbon Dioxide Level 29 MMOL/L (21-32) Anion Gap 7 mmol/L (5-15) Blood Urea Nitrogen 16 mg/dL (7-18) Creatinine 1.0 MG/DL (0.55-1.30) Estimat Glomerular Filtration Rate mL/min (>60) Glucose Level 93 MG/DL (74-106) Calcium Level 9.5 MG/DL (8.5-10.1) Current Medications Medications (Trade) Dose Ordered Sig/Sameer Route PRN Reason Start Time Stop Time Status Last Admin Dose Admin Acetaminophen (Tylenol) 650 mg Q4H PRN ORAL Mild Pain/Temp > 100.0 01/26/19 21:00 02/25/19 20:59 Amlodipine Besylate (Norvasc) 10 mg DAILY ORAL 01/30/19 09:00 02/25/19 11:44 Calcium Carbonate (Tums) 500 mg TIDPRN PRN ORAL hiccups/dyspepsia 01/29/19 11:00 02/28/19 10:59 Dextrose (Dextrose 50%) 25 ml Q30M PRN IV Hypoglycemia 01/26/19 21:30 02/24/19 15:59 Dextrose (Dextrose 50%) 50 ml Q30M PRN IV Hypoglycemia 01/26/19 21:30 02/24/19 15:59 Hydralazine HCl (Apresoline) 25 mg Q4H PRN ORAL For High Blood Pressure 01/26/19 21:00 02/25/19 20:59 01/28/19 04:12 Hydralazine HCl (Apresoline) 50 mg Q8HR ORAL 01/29/19 14:00 02/27/19 13:59 Insulin Aspart (NovoLOG) BEFORE MEALS AND HS SUBQ 01/26/19 21:00 02/25/19 16:29 01/29/19 11:27 Losartan Potassium (Cozaar) 100 mg DAILY ORAL 01/27/19 09:00 02/26/19 15:59 01/29/19 08:21 Metoprolol Tartrate (Lopressor) 75 mg EVERY 12 HOURS ORAL 01/27/19 21:00 02/25/19 11:44 01/29/19 08:21 Ondansetron HCl (Zofran) 4 mg Q6H PRN IVP Nausea & Vomiting 01/26/19 22:15 02/24/19 16:14 Pantoprazole (Protonix) 40 mg EVERY 12 HOURS ORAL 01/29/19 21:00 02/28/19 20:59 Tremayne Bhatti MD Jan 29, 2019 11:32
--- NOTE | 2019-01-29 12:13 | NUR ---
DISCHARGE PLANNED PATIENT IS RETURNING TO [facility] ROOM [address] SKILLED T: [phone] FOR NURSE TO NURSE REPORT [facility] HAS BEEN ARRANGED FOR [address] [employer]
[2019-01-29 12:21] VITALS: BP 101/41
[2019-01-29 13:06] VITALS: BP 101/41
[2019-01-29] MEDS ORDERED: HydrALAZINE 50mg tab ORAL SCH (14:00)
--- NOTE | 2019-01-29 14:35 | NUR ---
nurse notes discharge to SNF obtained, called and spoke to Raciel made aware regarding plan of care , patient family agreed , report given to Allison JOHNSON receiving nurse accordingly grey clark
--- NOTE | 2019-01-29 14:39 | NUR ---
nurse notes discharge to [facility] via ambulance ,report given to ambulance personnel, discharged via ambulance in stable condition with all belongings taken grey clark
--- NOTE | 2019-01-30 13:28 | Discharge Summary ---
Discharge Summary Discharge Summary _ DATE OF ADMISSION: 01/25/2019 DATE OF DISCHARGE: 01/29/2019 DISCHARGED BY: Dr. Salinas REASON FOR ADMISSION: 83 years old male with past medical history of hypertension, BPH, dementia, presented with coffee-ground emesis for 1 day. Patient was not on any anticoagulation. Patient was unable to provide any history secondary to dementia. Upon evaluation patient was afebrile, blood pressure 177/76 , pulse oximetry 90 % on room air. Laboratory work-up revealed no leukocytosis , hemoglobin 11.7 , hematocrit 36.4. Platelet count 172. Sodium 147, chloride 110. BUN 50, creatinine 1.3. Glucose 167. Stable LFT and lipase. Urinalysis revealed +1 protein , +5 blood , + leukocyte esterase, hematuria , pyuria ,m and occasional bacteria. EKG revealed normal sinus rhythm, no acute ischemic changes. Chest x-ray revealed no acute cardiopulmonary pathology. CT of the abdomen and pelvis demonstrated broad-based ventral hernia, containing a knuckle of transverse colon and few loops of small bowel. No definite small bowel obstruction related to such. Mildly distended fluid-filled ascending colon. Suspect functional in nature due to prior surgery. There was some narrowing of the proximal transverse colon, which may be an area of peristalsis bladder , but obstructing mass was not completely excludable. Doubt significant narrowing of the colon by the hernia, although this was not completely excludable. Stool-filled distal colon Left inguinal hernia containing fluid , but no bowel. Bilateral soft tissue masses within the inguinal canals may reflect incompletely descended testicles. 2.8 cm right lower lobe masslike opacity. Possibly an area of scarring or focal consolidation, but the possibility of a mass lesion should also be considered. Similar 0.9 cm area within the right middle lobe. There was also basilar parenchymal scarring L1 compression fracture, age-indeterminate In emergency department patient started on the IV fluids, pancultured , started on empiric antibiotic for possible UTI, typed and crossed and admitted for further management. CONSULTANTS: ID specialist Dr. Caroline Steele GI specialist Dr. Puentes rotating field assembler Dr. Jeter manufacturing mechanic/oncologist Dr. Fay nuclear medicine physician Dr. Vazquez [facility]SE: Patient admitted to the floor. Patient was kept NPO and hydrated with IV fluids. Patient started on proton pump inhibitor. GI specialist closely followed. Patient subsequently undergone EGD with biopsy. Biopsy results at the time of this dictation still pending. Aspiration/ reflux precaution maintained. Oral diet was resumed as tolerated. GI specialist recommended follow-up with the biopsy results and treat accordingly as needed. Hemoglobin and hematocrit were closely monitored with goal to keep hemoglobin above 7. Prior to discharge hemoglobin 11.6, hematocrit 35.7. Anemia work-up was consistent with iron deficiency anemia. Delivery Table Feeder followed. IV iron given as per manufacturing mechanic recommendations. Oncologist reviewed CT scan of the abdomen , which showed evidence of few lung nodules. Considering advanced age recommended further discussion of the pulmonary team as to where to proceed, which can be done as outpatient. Renal parameters and electrolytes were closely monitored, electrolytes corrected as needed, and nephrotoxins were avoided . BUN from 50 down to 16 , and creatinine down to 1.0. Blood pressure was closely monitored. Patient showed evidence of hypertensive urgency on admission. Antihypertensive regimen was optimized as per rotating field assembler , and included multiply antihypertensive medications, including calcium channel selin, hydralazine , beta-selin and ARB. Blood pressure stabilized. Prior to discharge blood rpessure 101/41. Infectious disease specialist followed. Urine culture revealed no evidence of growth , however patient with pyuria and hematuria and likely UTI . Patient undergone treatment for UTI while in the hospital . ID specialist recommended to keep patient off antibiotic. No fever , no leukocytosis. Audio/Visual Manager followed for evidence of hypoglycemia. Hypoglycemia resolved. Blood sugar was managed with sliding scale of insulin, low dose. TSH within normal limits. Patient clinically stabilized and was ready for discharge . FINAL DIAGNOSES: GI hemorrhage Iron deficiency anemia Dehydration Chronic kidney disease Hypertensive urgency Probably UTI, status post treatment Multiply lung nodules COPD Prostate cancer GERD L1 compression fracture Ventral hernia Hypoglycemia DISCHARGE MEDICATIONS: See Medication Reconciliation list. DISCHARGE INSTRUCTIONS: Patient was discharged to the long term facility. Follow up with medical doctor at the facility. I have been assigned to dictate discharge summary for this account. I was not involved in the patient's management. Addis Moctezuma NP Jan 30, 2019 13:28
== END 2019-01-29 14:30 | DRG 378 ==
LOC: EDBD 11:03 → EMR 11:31 → 2E 11:35 → EDBEDREQ 14:03 → 4E 01-26 20:43
PROC: 0DB48ZX Excision of Esophagogastric Junction, Via Natural or Artificial Opening Endoscopic, Diagnostic (ICD-10-PCS; principal; 2019-01-26 07:20)
DX: K92.2 Gastrointestinal hemorrhage, unspecified (principal); S32.018A Other fracture of first lumbar vertebra, initial encounter for closed fracture; N39.0 Urinary tract infection, site not specified; D62 Acute posthemorrhagic anemia; I16.0 Hypertensive urgency; F09 Unspecified mental disorder due to known physiological condition; F03.90 Unspecified dementia, unspecified severity, without behavioral disturbance, psychotic disturbance, mood disturbance, and anxiety; N40.0 Benign prostatic hyperplasia without lower urinary tract symptoms; Z88.7 Allergy status to serum and vaccine; E86.0 Dehydration; I12.9 Hypertensive chronic kidney disease with stage 1 through stage 4 chronic kidney disease, or unspecified chronic kidney disease; D50.9 Iron deficiency anemia, unspecified; R91.8 Other nonspecific abnormal finding of lung field; J44.9 Chronic obstructive pulmonary disease, unspecified; C61 Malignant neoplasm of prostate; K21.9 Gastro-esophageal reflux disease without esophagitis; E16.2 Hypoglycemia, unspecified; E11.22 Type 2 diabetes mellitus with diabetic chronic kidney disease; N18.3 Chronic kidney disease, stage 3 (moderate); K44.9 Diaphragmatic hernia without obstruction or gangrene; K22.70 Barrett's esophagus without dysplasia; D69.6 Thrombocytopenia, unspecified
CPT/HCPCS: 36415; 70450; 71045; 74177; 80048; 80053; 81003; 82728; 82746; 82962; 83540; 83550; 83690; 84443; 85007; 85025; 85044; 85060; 85610; 85730; 86850; 86900; 86901; 87081; 87086; 93005; 94003; 94150; 96361; 96365; 96375; 99285; J1815; J2405

== ENCOUNTER 2020-04-06 12:57 | Emergency (ER) | payer MEDICARE, MEDICAID ==
[~2020-04-06] VITALS: Ht 172.7 cm; Wt 81.6 kg
[~2020-04-06 12:57] MED LIST: AMLODIPINE BESY10 MG ORAL; FLOMAX0.4 MG ORAL; LOSARTAN POTASS50 MG ORAL; METOPROLOL TART50 MG ORAL; NAMENDA5 MG ORAL
--- NOTE | 2020-04-06 13:05 | NUR ---
ED Nurse Note: Pt BIBA for G tube misplacement 14F. Pt is alert and orientedx0, from natavladimir noriega. Pt has been seen by ERMLoraine. Pt site is [facility].
[2020-04-06 13:15] VITALS: BP 160/76
--- NOTE | 2020-04-06 13:21 | Emergency Room Report ---
History of Present Illness General Chief Complaint: Malfunctioning Gastric Tube Source: Medical Record, EMS, PMD - Dr. Stokes Present Illness HPI Patient is an 84-year-old male nonverbal at baseline who presents to the ER from his extended care facility for G-tube replacement. Patient's G-tube was pulled out this morning. It was replaced with a 14 Croatian Rubio catheter. Patient was brought in by EMS. Allergies: Coded Allergies: TETANUS TOXOID, ADSORBED (Verified Allergy, Unknown, 01/25/19) COVID-19 Screening Contact w/high risk pt: No Experienced COVID-19 symptoms?: No COVID-19 Testing performed LEACHER: No Patient History Reviewed Nursing Documentation: PMH: Agreed; PSxH: Agreed Nursing Documentation-PMH Past Medical History: No History, Except For Hx Hypertension: Yes - QUADRIPLEGIC Hx COPD: Yes Hx Diabetes: Yes Hx Cancer: Yes - NEOPLASM OF PROSTATE Hx Dialysis: No - CKD Hx Neurological Problems: Yes Hx Dementia: Yes Review of Systems All Other Systems: limited - Nonverbal Physical Exam Vital Signs Date Time Temp Pulse Resp B/P (MAP) Pulse Ox O2 Delivery O2 Flow Rate FiO2 04/06/20 12:58 97.3 81 19 190/84 (119) 95 Room Air Sp02 EP Interpretation: reviewed, normal General Appearance: other - Nonverbal chronically ill Head: normocephalic, atraumatic ENT: no angioedema Neck: full range of motion, supple Respiratory: no respiratory distress, no accessory muscle use Cardiovascular #1: regular rate, rhythm Gastrointestinal: other - G-tube stoma with [address] catheter [address] place Rectal: deferred Psychiatric: other - Unable to assess Skin: no rash Lymphatic: no adenopathy Procedures Additional Procedure Procedure Narrative G-tube replaced using 14 Croatian catheter. Placement verified by abdominal x-ray Medical Decision Making Diagnostic Impression: Primary Impression: Malfunction of gastrostomy tube ER Course G-tube replaced without complication. Patient sent back to his extended care facility. Other X-Ray Diagnostic Results Other X-Ray Diagnostic Results : X-Ray ordered: Abdominal x-ray # of Views/Limited Vs Complete: 1 View Indication: Other - G-tube replacement Interpretation: nonspecific bowel gas, no sbo, other - G-tube in proper place Impression: Other - Successful G-tube replacement Electronically Signed by: Jennifer Eduardo MD Last Vital Signs Date Time Temp Pulse Resp B/P (MAP) Pulse Ox O2 Delivery O2 Flow Rate FiO2 04/06/20 12:58 97.3 81 19 190/84 (119) 95 Room Air Disposition: SNF Condition: Stable Additional Instructions: Please note that this report is being documented using invino technology. This can lead to erroneous entry secondary to incorrect interpretation by the dictating instrument. Jennifer Eduardo M.D. Apr 06, 2020 13:21
--- NOTE | 2020-04-06 13:30 | NUR ---
ED Nurse Note: New G tube placed by Dr Eduardo 14 F[employer].
--- NOTE | 2020-04-06 13:50 | NUR ---
ER DISCHARGE NOTE: Patient is cleared to be discharged per ERMD, pt is aox0, on room air, with stable vital signs. ambulance prescription instructions, pt id band removed. pt is able to ambulate with steady gait. pt took all belongings. [facility] called and notified that pt is returning.
[2020-04-06 13:53] VITALS: BP 158/82
--- NOTE | 2020-04-06 14:20 | Diagnostic Imaging Report ---
EXAM: XR Abdomen, 2 Views CLINICAL HISTORY: PAIN TECHNIQUE: Frontal views of the abdomen/pelvis. COMPARISON: No relevant prior studies available. FINDINGS: Lower thorax: Lung bases appear clear. Intraperitoneal space: No free air. Gastrointestinal tract: Unremarkable bowel gas pattern in the upper abdomen. Lower abdomen and pelvis are excluded from view. Bones/joints: Unremarkable. Tubes, lines and devices: Infusion of contrast via the gastrostomy tube. Contrast collects within the gastric and small bowel lumen without evidence of extravasation. IMPRESSION: Infusion of contrast via the gastrostomy tube. Contrast collects within the stomach and small bowel without evidence of extravasation.
== END 2020-04-06 13:54 ==
LOC: EDUNIT# 12:57 → EDBD 12:57 → EMR 13:27
DX: K94.23 Gastrostomy malfunction (principal); Y83.3 Surgical operation with formation of external stoma as the cause of abnormal reaction of the patient, or of later complication, without mention of misadventure at the time of the procedure; Y92.9 Unspecified place or not applicable; J44.9 Chronic obstructive pulmonary disease, unspecified; E11.9 Type 2 diabetes mellitus without complications; F03.90 Unspecified dementia, unspecified severity, without behavioral disturbance, psychotic disturbance, mood disturbance, and anxiety; I10 Essential (primary) hypertension; G82.50 Quadriplegia, unspecified; Z85.46 Personal history of malignant neoplasm of prostate
CPT/HCPCS: 74018; 99284